=== PATIENT | female | born 1990 | race Caucasian/White ===

== ENCOUNTER 2016-05-21 09:29 | Emergency (ER) | payer OTHER ==
[2016-05-21 09:44] VITALS: BP 133/81; PULSE 86; RESP 18; TEMP 98.5
[2016-05-21] MEDS ORDERED: KETOROLAC 60 MG/2 ML VIAL IM STA (10:28)
--- NOTE | 2016-05-21 10:32 | ED ---
General Adult HPI - General Chief complaint: Fall Stated complaint: Back pain/fell downstairs Time Seen by Provider: 05/21/16 10:00 Source: patient, RN notes reviewed Mode of arrival: ambulatory Limitations: no limitations - History of Present Illness Initial comments: This is a 25-year-old female presents to the emergency department stating that she slipped on the last couple steps at home. Patient states since then she has had some pain between her scapulas she states is more on the right than the left. Patient denies any direct trauma to that area. Patient denies any numbness weakness. Patient denies any chest pain or difficulty breathing. Patient denies any scapular pain. Patient denies any upper extremity pain. Patient denies any head trauma or neck pain. Patient denies any lower extremity pain or hip pain. Patient denies any abdominal pain. - Related Data Home Medications Medication Instructions Recorded Confirmed Acetaminophen Tab [Tylenol Tab] 1,000 mg PO Q6HR PRN 05/21/16 05/21/16 Mirena 1 implant VAGINAL [id number] 05/21/16 05/21/16 diphenhydrAMINE HCL [Benadryl] 25 mg PO DAILY PRN 05/21/16 05/21/16 Previous Rx's Medication Instructions Recorded Cyclobenzaprine [Flexeril] 10 mg PO TID #10 tab 05/21/16 Allergies Allergy/AdvReac Type Severity Reaction Status Date / Time tramadol Allergy Anaphylaxis Verified 05/21/16 10:54 Review of Systems ROS Statement: Those systems with pertinent positive or pertinent negative responses have been documented in the HPI. ROS Other: All systems not noted in ROS Statement are negative. Past Medical History Past Medical History: Asthma, GERD/Reflux Additional Past Medical History / Comment(s): UTI,migraines,bronchitis History of Any Multi-Drug Resistant Organisms: None Reported Past Surgical History: Cholecystectomy Additional Past Surgical History / Comment(s): migraines Past Anesthesia/Blood Transfusion Reactions: No Reported Reaction Past Psychological History: No Psychological Hx Reported Additional Psychological History / Comment(s): Patient states being monitored by PCP for depression but states no confirmed diagnosis or treatment. Smoking Status: Former smoker Past Alcohol Use History: None Reported Past Drug Use History: None Reported - Past Family History Brother(s) Additional Family Medical History / Comment(s): Cerebral Palsy General Exam - General Exam Comments Initial Comments: GENERAL: Patient is well-developed and well-nourished. Patient is nontoxic and well- hydrated and is in mild distress. ENT: Neck is soft and supple. No significant lymphadenopathy is noted. Oropharynx is clear. Moist mucous membranes. Neck has full range of motion without eliciting any pain. EYES: The sclera were anicteric and conjunctiva were pink and moist. Extraocular movements were intact and pupils were equal round and reactive to light. Eyelids were unremarkable. PULMONARY: Unlabored respirations. Good breath sounds bilaterally. No audible rales rhonchi or wheezing was noted. CARDIOVASCULAR: There is a regular rate and rhythm without any murmurs gallops or rubs. ABDOMEN: Soft and nontender with normal bowel sounds. No palpable organomegaly was noted. There is no palpable pulsatile mass. SKIN: Skin is clear with no lesions or rashes and otherwise unremarkable. NEUROLOGIC: Patient is alert and oriented x3. Cranial nerves II through XII are grossly intact. Motor and sensory are also intact. Normal speech, volume and content. Symmetrical smile. Patient has mild tenderness just medial to the right scapula. No spinous tenderness is noted MUSCULOSKELETAL: Normal extremities with adequate strength and full range of motion. LYMPHATICS: No significant lymphadenopathy is noted PSYCHIATRIC: Normal psychiatric evaluation. Limitations: no limitations Course Vital Signs 05/21/16 09:41 Temperature 98.5 F Pulse Rate 86 Respiratory 18 Rate Blood Pressure 133/81 O2 Sat by Pulse 97 Oximetry Disposition Clinical Impression: Thoracic myofascial strain Disposition: HOME SELF-CARE Condition: Good Instructions: Thoracic Back Strain (ED) Prescriptions: Cyclobenzaprine [Flexeril] 10 mg PO TID #10 tab Time of Disposition: 11:28
--- NOTE | 2016-05-21 11:03 | XR ---
EXAMINATION TYPE: XR thoracic spine 2V DATE OF EXAM: 05/21/2016 10:56 AM CLINICAL HISTORY: pain TECHNIQUE: Frontal, lateral, and swimmer's view of thoracic spine are obtained. COMPARISON: None. FINDINGS: Thoracic spine show satisfactory alignment without evidence of acute fracture or dislocatio n. Vertebral body heights are preserved. Disc spaces are well preserved. Visualized ribs are unrem arkable. IMPRESSION: No acute fracture or dislocation is seen in the thoracic spine. ICD 10 NO FRACTURE, INIT IAL EVALUATION
== END 2016-05-21 11:38 | disposition home or self-care (01) ==
LOC: EC 09:29
DX: S29.012A Strain of muscle and tendon of back wall of thorax, initial encounter (principal); Z88.5 Allergy status to narcotic agent; Z87.891 Personal history of nicotine dependence; W10.9XXA Fall (on) (from) unspecified stairs and steps, initial encounter; Y92.019 Unspecified place in single-family (private) house as the place of occurrence of the external cause
CPT/HCPCS: 72070; 99284; 96372; J1885

== ENCOUNTER 2017-07-12 17:11 | Emergency (ER) | payer OTHER ==
[2017-07-12 17:17] VITALS: TEMP 99.3
--- NOTE | 2017-07-12 17:32 | ED ---
Headache HPI - General Chief Complaint: Headache Stated Complaint: Headache x8 days Time Seen by Provider: 07/12/17 17:19 Mode of arrival: ambulatory Limitations: no limitations - History of Present Illness Initial Comments: 27 yoF presenting with MIRANDA for one week and N/V for 3 days. Patient states she was diagnosed with migraines at 14 years old by a physician. The MIRANDA she has now is similar to previous migraines, however she hasnt had nausea and vomiting with the MIRANDA in the past few years. She admits to mild blurred vision, which is typical for her MIRANDA. She denies focal weakness, numbness, light headedness, or dizziness. She states the MIRANDA is frontal, exacerbated by light, not alleviated by anything. She has tried Excedrin migraine, Fiorcet, and Tylenol. Last medication was Tylenol this am. She denies F/C, CP, shortness of breath, or recent illness. LMP was 12/2015 because patient has an IUD. - Related Data Home Medications Medication Instructions Recorded Confirmed Acetaminophen Tab [Tylenol Tab] 1,000 mg PO Q6HR PRN 05/21/16 05/21/16 Mirena 1 implant VAGINAL [id number] 05/21/16 05/21/16 diphenhydrAMINE HCL [Benadryl] 25 mg PO DAILY PRN 05/21/16 05/21/16 Previous Rx's Medication Instructions Recorded Cyclobenzaprine [Flexeril] 10 mg PO TID #10 tab 05/21/16 Metoclopramide HCl [Reglan] 10 mg PO Q8HR PRN #20 tablet 07/12/17 diphenhydrAMINE [Benadryl] 50 mg PO QID PRN #20 capsule 07/12/17 Allergies Allergy/AdvReac Type Severity Reaction Status Date / Time tramadol Allergy Anaphylaxis Verified 07/12/17 17:17 Review of Systems ROS Statement: Those systems with pertinent positive or pertinent negative responses have been documented in the HPI. Review of Systems Constitutional: Denies fever, chills Eyes: Positive change in vision, Denies pain Ears, nose, mouth, throat: Positive headaches, Denies sore throat Cardiovascular: Denies chest pain. Denies palpitations Respiratory: Denies shortness of breath, Denies cough Gastrointestinal: Denies abdominal pain. Positive nausea, vomiting. Negative diarrhea. Genitourinary: Denies hematuria, Denies infections Musculoskeletal: Denies pain, Denies swelling Integumentary: Denies rash Neurological: Denies headache, focal weakness, focal numbness Psychiatric: Denies anxiety, Denies depression Hematologic/Lymphatic: Denies easy bleeding or bruising ROS Other: All systems not noted in ROS Statement are negative. Past Medical History Past Medical History: Asthma, GERD/Reflux Additional Past Medical History / Comment(s): UTI,migraines,bronchitis History of Any Multi-Drug Resistant Organisms: None Reported Past Surgical History: Cholecystectomy Additional Past Surgical History / Comment(s): migraines Past Anesthesia/Blood Transfusion Reactions: No Reported Reaction Past Psychological History: Anxiety, Depression Smoking Status: Former smoker Past Alcohol Use History: Occasional Past Drug Use History: None Reported - Past Family History Brother(s) Additional Family Medical History / Comment(s): Cerebral Palsy General Exam - General Exam Comments Initial Comments: General: Awake, alert, No acute Distress HENT: Normocephalic. Atraumatic Eyes: PERRL. EOMI. No scleral icterus. No injected conjunctiva Ears: TM intact without erythema or effusion. Neck: Full ROM. No tenderness. No meningeal signs. Chest/Lungs: Clear to auscultation bilaterally. No wheezing, rhonchi, or rales Cardiac: Regular rate, rhythm. No murmurs or rubs Abdomen/GI: [Soft, nontender, nondistended. No rebound, guarding, or rigidity. Musculoskeletal: Full ROM Skin: Warm, dry, intact Neurologic: A/Ox3, no weakness, no sensory deficit, no abdnormal gait, no coordination deficit. Intact finger to nose, rapid alternating motion, and heel to alvarado. Limitations: no limitations Course Vital Signs 07/12/17 17:14 Temperature 99.3 F Pulse Rate 104 H Respiratory 18 Rate Blood Pressure 139/85 O2 Sat by Pulse 99 Oximetry Medical Decision Making - Medical Decision Making 27-year-old female presenting with headache. Initial exam patient's awake, alert, no acute distress. VSS. Patient is nontoxic appearing. At this time there are no signs of any life-threatening infection such as meningitis. The patient's migraine is similar to headaches in the past and she is neurologically intact on exam. At this time will defer any CT imaging as serious etiologies are of low likelihood. 1815 Patient's headache decreased from a 7 to a 4. States her nausea is completely resolved. She states at this time she is stable for outpatient follow-up with her primary care physician on Friday. No further emergent workup indicated. At this time the patient is stable for outpatient follow-up with her primary care physician. She was given return to ER instructions. There are no signs of life threatening infection, stroke, other serious etiologies. - Lab Data Lab Results 07/12/17 Range/Units 17:30 Urine HCG, Qual Not Detected (Not Detectd) Disposition Clinical Impression: Headache Disposition: HOME SELF-CARE Condition: Good Instructions: Acute Headache (ED), Migraine Headache (ED) Prescriptions: diphenhydrAMINE [Benadryl] 50 mg PO QID PRN #20 capsule PRN Reason: Nausea Metoclopramide HCl [Reglan] 10 mg PO Q8HR PRN #20 tablet PRN Reason: Headache Referrals: Param Ferrari MD [Primary Care Provider] - 1-2 days
[2017-07-12] MEDS ORDERED: METOCLOPRAMIDE 5 MG/ML 2 ML VIAL IVP STA (17:52)
[2017-07-12] MEDS ORDERED: KETOROLAC 30 MG/ML 1 ML VIAL IVP STA (17:52)
[2017-07-12] MEDS ORDERED: diphenhydrAMINE 50 MG/ML 1 ML VIAL IVP STA (17:52)
[2017-07-12 18:26] VITALS: BP 123/71; PULSE 82; RESP 16
== END 2017-07-12 18:25 | disposition home or self-care (01) ==
LOC: EC 17:11
DX: R51 Headache (principal); R11.2 Nausea with vomiting, unspecified; H53.8 Other visual disturbances; Z87.891 Personal history of nicotine dependence; Z88.5 Allergy status to narcotic agent; Z97.5 Presence of (intrauterine) contraceptive device
CPT/HCPCS: 81025; 99283; 96374; 96375 ×2; J1200; J2765; J1885

== ENCOUNTER 2017-12-25 17:54 | Emergency (ER) | payer OTHER ==
[2017-12-25 17:59] VITALS: BP 125/82; PULSE 100; RESP 20; TEMP 98.1
[2017-12-25] MEDS ORDERED: KETOROLAC 30 MG/ML 1 ML VIAL IM STA (18:27)
--- NOTE | 2017-12-25 18:31 | ED ---
Head Injury HPI - General Chief complaint: Head Injury Stated complaint: head injury Time Seen by Provider: 12/25/17 18:09 Source: patient Mode of arrival: wheelchair Limitations: no limitations - History of Present Illness Initial comments: 27-year-old female with past medical history asthma presenting today for chief complaint of scalp laceration. Patient states that she was getting into her car try to change it car seat when she hit her head on a part sticking out the door. She noticed she was bleeding from the scalp and her mother evaluated stating that it was deep and she needed kelly. Patient denies loss of consciousness. Patient does admit to a dull headache 4 out of 10 however she states she does get chronic migraines and takes Topamax, denies this being worst headache of her life. Patient denies any diplopia, muscle weakness or any other neurological symptoms at this time. Patient states her tetanus is up- to-date. Patient denies any recent fever, chills, shortness of breath, chest pain, back pain, abdominal pain, nausea or vomiting, numbness or tingling, dysuria or hematuria, constipation or diarrhea, or visual changes, or any other complaints. - Related Data Home Medications Medication Instructions Recorded Confirmed Acetaminophen Tab [Tylenol Tab] 1,000 mg PO Q6HR PRN 05/21/16 05/21/16 Mirena 1 implant VAGINAL [id number] 05/21/16 05/21/16 diphenhydrAMINE HCL [Benadryl] 25 mg PO DAILY PRN 05/21/16 05/21/16 Previous Rx's Medication Instructions Recorded Cyclobenzaprine [Flexeril] 10 mg PO TID #10 tab 05/21/16 Metoclopramide HCl [Reglan] 10 mg PO Q8HR PRN #20 tablet 07/12/17 diphenhydrAMINE [Benadryl] 50 mg PO QID PRN #20 capsule 07/12/17 Allergies/Adverse reactions: Allergies Allergy/AdvReac Type Severity Reaction Status Date / Time tramadol Allergy Anaphylaxis Verified 12/25/17 20:38 Review of Systems ROS Statement: Those systems with pertinent positive or pertinent negative responses have been documented in the HPI. ROS Other: All systems not noted in ROS Statement are negative. Constitutional: Denies: fever, chills Eyes: Denies: vision change Respiratory: Denies: cough, dyspnea, wheezes, hemoptysis, stridor Endocrine: Denies: fatigue Gastrointestinal: Denies: abdominal pain, nausea, vomiting, diarrhea, constipation Genitourinary: Denies: urgency, dysuria Musculoskeletal: Denies: back pain Skin: Reports: as per HPI (1cm superficial laceration of the right parietal aspect of skull) Neurological: Reports: headache (4/10 dull ache no radiation). Denies: weakness , numbness, paresthesias, confusion, abnormal gait, vertigo Past Medical History Past Medical History: Asthma, GERD/Reflux Additional Past Medical History / Comment(s): UTI,migraines,bronchitis History of Any Multi-Drug Resistant Organisms: None Reported Past Surgical History: Cholecystectomy Additional Past Surgical History / Comment(s): migraines Past Anesthesia/Blood Transfusion Reactions: No Reported Reaction Past Psychological History: Anxiety, Depression Smoking Status: Former smoker Past Alcohol Use History: Occasional Past Drug Use History: None Reported - Past Family History Brother(s) Additional Family Medical History / Comment(s): Cerebral Palsy General Exam - General Exam Comments Initial Comments: General: The patient is awake and alert, in no distress, and does not appear acutely ill. Eye: Pupils are equal, round and reactive to light, extra-ocular movements are intact. No nystagmus. There is normal conjunctiva bilaterally. No signs of icterus. Ears, nose, mouth and throat: There are moist mucous membranes and no oral lesions. Cardiovascular: There is a regular rate and rhythm. No murmur, rub or gallop is appreciated. Respiratory: Lungs are clear to auscultation, respirations are non-labored, breath sounds are equal. No wheezes, stridor, rales, or rhonchi. Musculoskeletal: Normal ROM, no tenderness. Strength 5/5 UE and LE. Sensation intact. Radial pulses equal bilaterally 2+. Neurological: A&O x 3. CN II-XII intact, There are no obvious motor or sensory deficits. Coordination appears grossly intact. Speech is normal. Skin: Skin is warm and dry and no rashes or lesions are noted. 1cm superficial laceration to the right parietal aspect of skull. No active bleeding. No skull crepitus to palpation. (-) Racoon or whitley sign. Psychiatric: Cooperative, appropriate mood & affect, normal judgment. Limitations: no limitations Course Vital Signs 12/25/17 17:57 Temperature 98.1 F Pulse Rate 100 Respiratory 20 Rate Blood Pressure 125/82 O2 Sat by Pulse 98 Oximetry Medical Decision Making - Medical Decision Making Pt given 30mg for headache- she mentioned that she has had chronic migraines and this is not the worst headache of her life. I have low suspicion for intracranial process at this time given the mechanism of injury and pt PE findings. Pt shows no signs or symptoms of focal neurological deficits. There is no crepitus to palpation of the skull concerning for skull fracture. No whitley or raccoon sign. Laceration irrigated extensively and explored appeared superficial no FB, or exposure of underlying structures. Wound edges approximated using 2 kelly. Given size of laceration lidocaine use was discussed and pt refused. Pt tolerated procedure well. Case discussed with Dr Glaser at this time I feel pt is stable for d/c with f/u for staple removal. Pt is to return for change or worsening symptoms, including incontrolled vomiting, worsening headache, visual changes. Disposition Clinical Impression: Scalp laceration Disposition: HOME SELF-CARE Condition: Good Instructions: Staple Care (ED) Additional Instructions: Please use over the counter pain medication as discussed. Please follow-up for suture removal in 5-7 days. Please return to emergency room if the symptoms increase or worsen or for any other concerns. Is patient prescribed a controlled substance at d/c from ED?: No Referrals: Param Ferrari MD [Primary Care Provider] - 1-2 days Time of Disposition: 18:42
== END 2017-12-25 18:46 | disposition home or self-care (01) ==
LOC: EC 17:54
DX: S01.01XA Laceration without foreign body of scalp, initial encounter (principal); G43.909 Migraine, unspecified, not intractable, without status migrainosus; Z79.3 Long term (current) use of hormonal contraceptives; Z88.6 Allergy status to analgesic agent; Z87.891 Personal history of nicotine dependence; Z53.29 Procedure and treatment not carried out because of patient's decision for other reasons; W22.8XXA Striking against or struck by other objects, initial encounter; Y92.009 Unspecified place in unspecified non-institutional (private) residence as the place of occurrence of the external cause
CPT/HCPCS: 99283 ×3; 12001 ×2; 96372 ×2; 96374; 96375; J1200; J2765; J1885

== ENCOUNTER 2017-12-25 20:28 | Emergency (ER) | payer OTHER ==
[2017-12-25] MEDS ORDERED: METOCLOPRAMIDE 5 MG/ML 2 ML VIAL IVP STA (21:28)
[2017-12-25] MEDS ORDERED: diphenhydrAMINE 50 MG/ML 1 ML VIAL IVP STA (21:28)
--- NOTE | 2017-12-25 21:39 | ED ---
Headache HPI - General Chief Complaint: Headache Stated Complaint: headache/vomiting-revisit Time Seen by Provider: 12/25/17 21:29 Mode of arrival: ambulatory Limitations: no limitations - History of Present Illness Initial Comments: 7-year-old female with a history of migraine headaches who presents to the ED today for reevaluation of a headache. Patient was seen earlier in the day after a minor head injury. Patient reports that she was putting her children in the back seat of a van, when she attempted to get out of the van she struck the right side of her head on the latch resulting in a small laceration approximately 1 cm in length to the right temporoparietal scalp. Patient did not lose consciousness. Patient was evaluated in our ER, 2 kelly were placed and the patient was discharged home with closed head injury precautions. Patient reports that this afternoon she had a mild headache, she had one episode of nonbloody nonbilious emesis, she reports that she read on her paperwork that if she had any headache or emesis she should return to the emergency department for reevaluation. Patient does report she has chronic migraines, she is on Topamax. She has not attempted take any medications for her headache. Patient isn't experiencing any blurred vision. Any confusion. Any persistent vomiting. She is awake alert oriented totally appropriate. - Related Data Home Medications Medication Instructions Recorded Confirmed Acetaminophen Tab [Tylenol Tab] 1,000 mg PO Q6HR PRN 05/21/16 12/25/17 diphenhydrAMINE HCL [Benadryl] 25 mg PO DAILY PRN 05/21/16 12/25/17 Naproxen Sodium [Aleve] 220 mg PO DAILY PRN 12/25/17 12/25/17 Topiramate [Topamax] 100 mg PO DAILY 12/25/17 12/25/17 Allergies Allergy/AdvReac Type Severity Reaction Status Date / Time tramadol Allergy Anaphylaxis Verified 12/25/17 20:50 Review of Systems ROS Statement: Those systems with pertinent positive or pertinent negative responses have been documented in the HPI. ROS Other: All systems not noted in ROS Statement are negative. Past Medical History Past Medical History: Asthma, GERD/Reflux Additional Past Medical History / Comment(s): UTI,migraines,bronchitis History of Any Multi-Drug Resistant Organisms: None Reported Past Surgical History: Cholecystectomy Additional Past Surgical History / Comment(s): migraines Past Anesthesia/Blood Transfusion Reactions: No Reported Reaction Past Psychological History: Anxiety, Depression Smoking Status: Former smoker Past Alcohol Use History: Occasional Past Drug Use History: None Reported - Past Family History Brother(s) Additional Family Medical History / Comment(s): Cerebral Palsy General Exam - General Exam Comments Initial Comments: GENERAL: Patient is well-developed and well-nourished. Patient is nontoxic and well- hydrated and is in no distress. Patient sitting up in bed talking to her sister in no acute distress HENT: Normocephalic, 1 cm laceration in the right sided frontotemporal scalp with [address] No active bleeding. TMs normal bilaterally no hemotympanum No whitley signs, no raccoon eyes Neck is soft and supple. No significant lymphadenopathy is noted. Oropharynx is clear. Moist mucous membranes. Neck has full range of motion without eliciting any pain. EYES: The sclera were anicteric and conjunctiva were pink and moist. Extraocular movements were intact and pupils were equal round and reactive to light. Eyelids were unremarkable. PULMONARY: Unlabored respirations. Good breath sounds bilaterally. No audible rales rhonchi or wheezing was noted. CARDIOVASCULAR: There is a regular rate and rhythm without any murmurs gallops or rubs. ABDOMEN: Soft and nontender with normal bowel sounds. SKIN: Skin is clear with no lesions or rashes and otherwise unremarkable. NEUROLOGIC: Patient is alert and oriented x3. Cranial nerves II through XII are grossly intact. Motor and sensory are also intact. Normal speech, volume and content. Symmetrical smile. MUSCULOSKELETAL: Normal extremities with adequate strength and full range of motion. No lower extremity swelling or edema. No calf tenderness. LYMPHATICS: No significant lymphadenopathy is noted PSYCHIATRIC: Normal psychiatric evaluation. Limitations: no limitations Limitations: no limitations Course Vital Signs 12/25/17 12/25/17 20:37 22:02 Temperature 98.2 F 97.6 F Pulse Rate 83 64 Respiratory 16 18 Rate Blood Pressure 129/81 118/66 O2 Sat by Pulse 99 100 Oximetry Medical Decision Making - Medical Decision Making The patient was seen and evaluated history was obtained from the patient and review of medical record Patient struck her head on the latch of the door earlier in the day, received 2 kelly. Now has a mild headache and did have one episode of vomiting Patient is on no anticoagulant or antiplatelet medications. She is awake alert and oriented and in no acute distress. Based on the mechanism of injury the location of the small laceration or had a have no suspicion for intracranial hemorrhage. At this time I will treat the patient is a migraine and reevaluate Plan was discussed with the patient who is agreeable Patient reports improvement in her headache after medications. Continues to sit upright in the bed conversing with her sister. Playing on her cell phone. In no acute distress. At this time if the patient is stable for discharge home. Again return parameters were discussed patient was discharged home in stable condition. Disposition Clinical Impression: Headache Disposition: HOME SELF-CARE Condition: Good Instructions: Acute Headache (ED) Is patient prescribed a controlled substance at d/c from ED?: No Referrals: Param Ferrari MD [Primary Care Provider] - 1-2 days
[2017-12-25 22:02] VITALS: BP 118/66; PULSE 64; RESP 18; TEMP 97.6
== END 2017-12-25 22:28 | disposition home or self-care (01) ==
LOC: EC 20:28
DX: R51 Headache (principal); R11.10 Vomiting, unspecified; S01.01XD Laceration without foreign body of scalp, subsequent encounter; Z86.69 Personal history of other diseases of the nervous system and sense organs; Z87.891 Personal history of nicotine dependence; Z90.49 Acquired absence of other specified parts of digestive tract; Z79.899 Other long term (current) drug therapy; Z88.5 Allergy status to narcotic agent; W22.8XXD Striking against or struck by other objects, subsequent encounter
CPT/HCPCS: 99283; 96374; 96375; J1200; J2765

== ENCOUNTER → 2018-05-19 | Outpatient (CLI) | payer OTHER ==
--- NOTE | 2018-05-21 01:48 | US ---
EXAMINATION TYPE: US OB <= 14 wk twins DATE OF EXAM: 05/19/2018 COMPARISON: NONE CLINICAL HISTORY: 27-year-old female Z36 confirm dates. Confirm dates EXAM PERFORMED: Transabdominal (TA) FINDINGS: EXAM MEASUREMENTS: GESTATIONAL AGE / DATING Physician Established: (10 weeks/1 days) EDC: 12/14/2018 Dates by LMP: (10 weeks/1 days) EDC: 12/14/2018 Dates by First Scan: This is 1st scan Dates by Current Scan for Baby A: (10 weeks/5 days) EDC: 12/10/2018 Dates by Current Scan for Baby B: (11 weeks/0 days) EDC: 12/08/2018 MATERNAL ANATOMY Uterus: 12.2 x 7.7 x 9.3cm, anteverted Right Ovary: 3.3 x 1.9 x 2.6cm Left Ovary: 2.9 x 1.4 x 2.2cm Post CDS / Adnexa: wnl Presence of free fluid: no Presence of corpus luteal cyst: not seen Presence of subchorionic bleed: no Presence of two separate gestational sacs: yes GESTATION / SURVEY Twin peak sign is demonstrated with 2 yolk sacs. TWIN A (more inferior) CRL: 3.7cm (10wks/5days) Yolk Sac (normal less than 6mm): 4.6mm Heart Rate: 160 bpm Rhythm: Normal IUP: Viable IUP Nuchal Translucency 10-14wks (normal less than 3mm): 1.3mm TWIN B (more superior) CRL: 4.0cm (11wks/0days) Yolk Sac (normal less than 6mm): 4.8mm Heart Rate: 153 bpm Rhythm: Normal IUP: Viable IUP Nuchal Translucency 10-14wks (normal less than 3mm): 1.5mm Date of LMP: 03/09/2018 Safety Lead notes: Viable twin IUP with baby A measuring 10 weeks 5 days with a heart rate of 160bpm and an estimated delivery date of 12/10/2018 and with baby B measuring 11 weeks 0 days with a heart r ate of 153bpm and an estimated delivery date of 12/08/2018. IMPRESSION: 1. Live dichorionic, diamnionic twin pregnancies evidenced by a thick dividing septum and two yolk sa cs. 2. Estimated gestational age of 10 weeks 1 day by LMP. Current ultrasound biometry is slightly larger (twin A at 10 weeks 5 days and twin B at 11 weeks 0 days). 3. Complete survey recommended at 18-20 weeks.
== END ==
LOC: RADUSWWP 16:15
PROVIDERS: ATTEND Obstetrics & Gynecology
DX: O30.041 Twin pregnancy, dichorionic/diamniotic, first trimester (principal); Z3A.11 11 weeks gestation of pregnancy
CPT/HCPCS: 76801; 76802; 76813; 76814

== ENCOUNTER 2018-05-29 19:31 | Emergency (ER) | payer OTHER ==
[2018-05-29 19:47] VITALS: RESP 16
--- NOTE | 2018-05-29 21:07 | ED ---
General Adult HPI - General Chief complaint: Fever Stated complaint: Fever/Rash/13Weeks Time Seen by Provider: 05/29/18 19:54 Source: patient, RN notes reviewed, old records reviewed Mode of arrival: ambulatory Limitations: no limitations - History of Present Illness Initial comments: 27-year-old female patient who is approximately 10 weeks presents to ED with rash on her left breast. Patient fourth that this has been there for approximately 2 days. Patient was seen yesterday is painful, however today is not. Denies any pruritus or discharge. Patient also reports that she has been having some low-grade fevers waxing and waning over the last 2 days. Patient also states that she has a mild dry cough. Patient denies other complaints. Patient denies any abdominal pain, vaginal bleeding, dysuria. Systemic: Pt denies fatigue, myalgia. Pt denies weakness, night sweats, weight loss. Neuro: Pt denies headache, visual disturbances, syncope or pre-syncope. HEENT: Pt denies ocular discharge or irritation, otalgia, rhinorrhea, pharyngitis or notable lymphadenopathy. Cardiopulmonary: Pt denies chest pain, SOB, heart palpitations, dyspnea on exertion. Abdominal/GI: Pt denies abdominal pain, n/v/d. : Pt denies dysuria, burning w/ urination, frequency/urgency. Denies new onset urinary or bowel incontinence. MSK: Pt denies myalgia, loss of strength or function in extremities. Neuro: Pt denies new onset weakness, paresthesias. - Related Data Home Medications Medication Instructions Recorded Confirmed Acetaminophen Tab [Tylenol Tab] 1,000 mg PO Q6HR PRN 05/21/16 05/29/18 diphenhydrAMINE HCL [Benadryl] 25 mg PO DAILY PRN 05/21/16 05/29/18 [id number] Acid 1 cap PO DAILY 05/29/18 05/29/18 [-U Capsule (formulary)] Previous Rx's Medication Instructions Recorded Clotrimazole [Clotrimazole 1% Top 1 applic TOPICAL Q12HR 7 Days #1 05/29/18 Soln] tube Allergies Allergy/AdvReac Type Severity Reaction Status Date / Time tramadol Allergy Anaphylaxis Verified 05/29/18 20:32 Review of Systems ROS Statement: Those systems with pertinent positive or pertinent negative responses have been documented in the HPI. ROS Other: All systems not noted in ROS Statement are negative. Past Medical History Past Medical History: Asthma, GERD/Reflux Additional Past Medical History / Comment(s): UTI,migraines,bronchitis History of Any Multi-Drug Resistant Organisms: None Reported Past Surgical History: Cholecystectomy Additional Past Surgical History / Comment(s): migraines Past Anesthesia/Blood Transfusion Reactions: No Reported Reaction Past Psychological History: Anxiety, Depression Smoking Status: Former smoker Past Alcohol Use History: Occasional Past Drug Use History: None Reported - Past Family History Brother(s) Additional Family Medical History / Comment(s): Cerebral Palsy General Exam - General Exam Comments Initial Comments: Constitutional: NAD, AOX3, Pt has pleasant affect. HEENT: NC/AT, trachea midline, neck supple, no lymphadenopathy. Posterior pharynx non erythematous, without exudates. External ears appear normal, without discharge. Mucous membranes moist. Eyes PERRLA, EOM intact. There is no scleral icterus. No pallor noted. Cardiopulmonary: RRR, no murmurs, rubs or gallops, no JVD noted. Lungs CTAB in anterior and posterior herzog. No peripheral edema. Abdominal exam: Abdomen soft and non-distended. Abdomen non-tender to palpation in all 4 quadrants. Bowel sounds active in LLQ. No hepatosplenomegaly. No ecchymosis Neuro: CN II-XII grossly intact. No nuchal rigidity. MSK: No posterior calf tenderness bilaterally, homans sign negative bilaterally. Posterior tibialis and radial pulse +2 bilaterally. Sensation intact in upper and lower extremities. Full active ROM in upper and lower extremities, 5/5 stregnth. Derm: Mildly erythematous rash noted beneath left breast to midline, no discharge, nonraised. Limitations: no limitations Course Vital Signs 05/29/18 05/29/18 19:44 21:21 Temperature 99 F 98.1 F Pulse Rate 77 73 Respiratory 16 16 Rate Blood Pressure 126/70 122/72 O2 Sat by Pulse 100 100 Oximetry Medical Decision Making - Medical Decision Making 27-year-old female patient who is approximately 10 weeks presents to ED with rash on her left breast. Patient fourth that this has been there for approximately 2 days. Patient was seen yesterday is painful, however today is not. Denies any pruritus or discharge. Patient also reports that she has been having some low-grade fevers waxing and waning over the last 2 days. Patient also states that she has a mild dry cough. Patient denies other complaints. Pt VSS, afebrile. PHysical exam displayed: Mildly erythematous rash noted beneath left breast to midline, no discharge, nonraised. Chaperogned by Kaye WARD. Patient to be treated for Nai with clotrimazole. Patient to follow up with [facility] tomorrow for continued evaluation. Shared decision-making patient will continue to monitor cough, will be reevaluated by [facility]. Patient will also follow up with primary care right 1-2 days. Case discussed and patient seen by Dr. Woodard. - Lab Data Lab Results 05/29/18 Range/Units 20:05 Influenza Type A RNA Not Detected (Not Detectd) Influenza Type B (PCR) Not Detected (Not Detectd) Disposition Clinical Impression: Rash Disposition: HOME SELF-CARE Condition: Stable Instructions (If sedation given, give patient instructions): Skin Yeast Infection (ED) Additional Instructions: Patient to adhere to previously discussed treatment plan and will take medication(s) as directed. Patient to follow up with PCP in 1-2 days. Patient to return to ED if symptoms do not improve. Follow-up with [facility] tomorrow. Please return to ED if new s/sx develop or if condition worsens in anyway. Prescriptions: Clotrimazole [Clotrimazole 1% Top Soln] 1 applic TOPICAL Q12HR 7 Days #1 tube Is patient prescribed a controlled substance at d/c from ED?: No Referrals: Param Ferrari MD [Primary Care Provider] - 1-2 days Time of Disposition: 21:07
[2018-05-29 21:22] VITALS: BP 122/72; PULSE 73; TEMP 98.1
== END 2018-05-29 21:23 | disposition home or self-care (01) ==
LOC: EC 19:31
DX: O99.89 Other specified diseases and conditions complicating pregnancy, childbirth and the puerperium (principal); R21 Rash and other nonspecific skin eruption; R50.9 Fever, unspecified; R05 Cough; Z87.09 Personal history of other diseases of the respiratory system; Z87.891 Personal history of nicotine dependence; Z88.5 Allergy status to narcotic agent; Z3A.10 10 weeks gestation of pregnancy
CPT/HCPCS: 87502; 99283

== ENCOUNTER 2018-06-17 12:07 | Emergency (ER) | payer OTHER ==
[2018-06-17 12:20] VITALS: TEMP 98.4
[2018-06-17] MEDS ORDERED: SODIUM CHLORIDE 0.9% 1,000 ML IV ONE (12:49)
[2018-06-17] MEDS ORDERED: METOCLOPRAMIDE 5 MG/ML 2 ML VIAL IVP STA (12:50)
[2018-06-17] MEDS ORDERED: PYRIDOXINE 100 MG/ML 1 ML VIAL IVP STA (12:52)
[2018-06-17 13:23] LABS: ALT 30 U/L (9-52); AST 20 U/L (14-36); Albumin 3.8 g/dL (3.5-5.0); Alkaline Phosphatase 38 U/L (38-126); Anion Gap 6 mmol/L; Blood Urea Nitrogen 9 mg/dL (7-17); Calcium 8.4 mg/dL (8.4-10.2); Carbon Dioxide 25 mmol/L (22-30); Chloride 104 mmol/L (98-107); Glucose 80 mg/dL (74-99); Potassium 4.1 mmol/L (3.5-5.1); Sodium 135 mmol/L (137-145); Total Bilirubin 0.7 mg/dL (0.2-1.3); Total Protein 6.6 g/dL (6.3-8.2)
[2018-06-17 13:24] LABS: Appearance,Urine Clear (Clear); Bilirubin,Urine Negative (Negative); Blood,Urine Negative (Negative); Color,Urine Yellow; Glucose,Urine (UA) Negative (Negative); Ketones,Urine Negative (Negative); Leukocyte Esterase,Urine Negative (Negative); Mucus,Urine Few /hpf; Nitrite,Urine Negative (Negative); PH, Urine 6.5 (5.0-8.0); Protein,Urine 1+ (Negative); Specific Gravity,Urine 1.022 (1.001-1.035); Squamous Epithelial Cell,Urine <1 /hpf (0-4); WBC,Urine 1 /hpf (0-5)
[2018-06-17 13:30] LABS: Basophils % (A) 0 %; Eosinophils # (A) 0.1 k/uL (0-0.7); Eosinophils % (A) 1 %; HCT 42.2 % (34.0-46.0); Lymphocytes # (A) 0.8 k/uL (1.0-4.8); Lymphocytes % (A) 12 %; MCH 30.2 pg (25.0-35.0); MCHC 33.1 g/dL (31.0-37.0); MCV 91.1 fL (80.0-100.0); Mean Platelet Volume 7.1; Monocytes # (A) 0.3 k/uL (0-1.0); Monocytes % (A) 4 %; Neutrophils # (A) 5.4 k/uL (1.3-7.7); Neutrophils % (A) 82 %; Platelet Count 241 k/uL (150-450); RBC 4.64 m/uL (3.80-5.40); RDW 12.7 % (11.5-15.5); WBC 6.6 k/uL (3.8-10.6)
--- NOTE | 2018-06-17 13:37 | ED ---
Nausea/Vomiting/Diarrhea HPI - General Chief complaint: Nausea/Vomiting/Diarrhea Stated complaint: Vomiting-14 wks Time Seen by Provider: 06/17/18 12:49 Source: patient Mode of arrival: ambulatory Limitations: no limitations - History of Present Illness Initial comments: 28-year-old female A0 with no past medical history presents today at 14wks gestation for chief complaint of nausea, vomiting and diarrhea. Patient states she has had a mild cough and congestion for the past week, others in her household have tested positive for influenza A, patient states she is vaccinated. Patient states that today at 4 AM she began experiencing vomiting, she states it feels more like a "stomach bug" and morning sickness. Patient states she does have abdominal discomfort of the left upper quadrant, she denies lower abdominal pain. She states around 6 AM she noticed small specks of bright red blood in the vomit, denies the vomiting being all bright red blood. Patient states that she has had on-and-off puking all day, denies any episodes of emesis since arrival. Patient denies any chest pain, shorts breath or dyspnea on exertion. Patient states she has had 3 episodes of diarrhea she denies any melena or hematochezia. Patient denies any recent vaginal bleeding, vaginal discharge, cramping, fever, chest pain, back pain, abdominal pain, numbness or tingling, dysuria or hematuria, constipation, headaches or visual changes, or any other complaints. - Related Data Home Medications Medication Instructions Recorded Confirmed Acetaminophen Tab [Tylenol Tab] 1,000 mg PO Q6HR PRN 05/21/16 06/17/18 diphenhydrAMINE HCL [Benadryl] 25 mg PO DAILY PRN 05/21/16 06/17/18 [id number] Acid 1 cap PO DAILY 05/29/18 06/17/18 [-U Capsule (formulary)] Allergies Allergy/AdvReac Type Severity Reaction Status Date / Time tramadol Allergy Anaphylaxis Verified 06/17/18 13:15 Review of Systems ROS Statement: Those systems with pertinent positive or pertinent negative responses have been documented in the HPI. ROS Other: All systems not noted in ROS Statement are negative. Past Medical History Past Medical History: Asthma, GERD/Reflux Additional Past Medical History / Comment(s): UTI,migraines,bronchitis History of Any Multi-Drug Resistant Organisms: None Reported Past Surgical History: Cholecystectomy Additional Past Surgical History / Comment(s): migraines Past Anesthesia/Blood Transfusion Reactions: No Reported Reaction Past Psychological History: Anxiety, Depression Smoking Status: Former smoker Past Alcohol Use History: Occasional Past Drug Use History: None Reported - Past Family History Brother(s) Additional Family Medical History / Comment(s): Cerebral Palsy General Exam - General Exam Comments Initial Comments: General: The patient is awake and alert, in no distress, and does not appear acutely ill. Eye: Pupils are equal, round and reactive to light, extra-ocular movements are intact. No nystagmus. There is normal conjunctiva bilaterally. No signs of icterus. Ears, nose, mouth and throat: There are moist mucous membranes and no oral lesions. Neck: The neck is supple, there is no tenderness or JVD. Cardiovascular: There is a regular rate and rhythm. No murmur, rub or gallop is appreciated. Respiratory: Lungs are clear to auscultation, respirations are non-labored, breath sounds are equal. No wheezes, stridor, rales, or rhonchi. Gastrointestinal: Soft, non-distended, non-tender abdomen without masses or organomegaly noted. There is no rebound or guarding present. No CVA tenderness. Bowel sounds are unremarkable. Musculoskeletal: Normal ROM, no tenderness. Strength 5/5. Sensation intact. Pulses equal bilaterally 2+. Neurological: A&O x 3. CN II-XII intact, There are no obvious motor or sensory deficits. Coordination appears grossly intact. Speech is normal. Skin: Skin is warm and dry and no rashes or lesions are noted. Psychiatric: Cooperative, appropriate mood & affect, normal judgment. Limitations: no limitations Course Vital Signs 06/17/18 06/17/18 12:17 15:40 Temperature 98.4 F 98.4 F Pulse Rate 96 85 Respiratory 18 20 Rate Blood Pressure 118/65 108/52 O2 Sat by Pulse 99 96 Oximetry Medical Decision Making - Medical Decision Making 28-year-old female 14 weeks with twins presenting today for chief complaint of vomiting. Abdominal exam benign. Patient states that she ate gas station not shows a few hours prior to onset of symptoms, concerned about food poisoning. Laboratory studies unremarkable. Urinalysis within normal limits. Patient given IV fluids as well as medications for antibiotics. Patient states symptoms have resolved, no active vomiting in the emergency department. Patient states he is hungry. This time after discussing case with him provider Dr. Glaser medical patient stable for discharge. - Lab Data Result diagrams: 06/17/18 13:00 06/17/18 13:00 Lab Results 06/17/18 06/17/18 06/17/18 Range/Units 13:00 13:00 13:00 WBC 6.6 (3.8-10.6) k/uL RBC 4.64 (3.80-5.40) m/uL Hgb 14.0 (11.4-16.0) gm/dL Hct 42.2 (34.0-46.0) % MCV 91.1 (80.0-100.0) fL MCH 30.2 (25.0-35.0) pg MCHC 33.1 (31.0-37.0) g/dL RDW 12.7 (11.5-15.5) % Plt Count 241 (150-450) k/uL Neutrophils % 82 % Lymphocytes % 12 % Monocytes % 4 % Eosinophils % 1 % Basophils % 0 % Neutrophils # 5.4 (1.3-7.7) k/uL Lymphocytes # 0.8 L (1.0-4.8) k/uL Monocytes # 0.3 (0-1.0) k/uL Eosinophils # 0.1 (0-0.7) k/uL Basophils # 0.0 (0-0.2) k/uL Sodium 135 L (137-145) mmol/L Potassium 4.1 (3.5-5.1) mmol/L Chloride 104 (98-107) mmol/L Carbon Dioxide 25 (22-30) mmol/L Anion Gap 6 mmol/L BUN 9 (7-17) mg/dL Creatinine 0.36 L (0.52-1.04) mg/dL Est GFR (CKD-EPI)AfAm >90 (>60 ml/min/1.73 sqM) Est GFR (CKD-EPI)NonAf >90 (>60 ml/min/1.73 sqM) Glucose 80 (74-99) mg/dL Calcium 8.4 (8.4-10.2) mg/dL Total Bilirubin 0.7 (0.2-1.3) mg/dL AST 20 (14-36) U/L ALT 30 (9-52) U/L Alkaline Phosphatase 38 (38-126) U/L Total Protein 6.6 (6.3-8.2) g/dL Albumin 3.8 (3.5-5.0) g/dL Urine Color Yellow Urine Appearance Clear (Clear) Urine pH 6.5 (5.0-8.0) Ur Specific [place] 1.022 (1.001-1.035) Urine Protein 1+ H (Negative) Urine Glucose (UA) Negative (Negative) Urine Ketones Negative (Negative) Urine Blood Negative (Negative) Urine Nitrite Negative (Negative) Urine Bilirubin Negative (Negative) Urine Urobilinogen 2.0 (<2.0) mg/dL Ur Leukocyte Esterase Negative (Negative) Urine WBC 1 (0-5) /hpf Ur Squamous Epith Cells <1 (0-4) /hpf Urine Mucus Few H (None) /hpf Influenza Type A RNA (Not Detectd) Influenza Type B (PCR) (Not Detectd) 06/17/18 Range/Units 14:05 WBC (3.8-10.6) k/uL RBC (3.80-5.40) m/uL Hgb (11.4-16.0) gm/dL Hct (34.0-46.0) % MCV (80.0-100.0) fL MCH (25.0-35.0) pg MCHC (31.0-37.0) g/dL RDW (11.5-15.5) % Plt Count (150-450) k/uL Neutrophils % % Lymphocytes % % Monocytes % % Eosinophils % % Basophils % % Neutrophils # (1.3-7.7) k/uL Lymphocytes # (1.0-4.8) k/uL Monocytes # (0-1.0) k/uL Eosinophils # (0-0.7) k/uL Basophils # (0-0.2) k/uL Sodium (137-145) mmol/L Potassium (3.5-5.1) mmol/L Chloride (98-107) mmol/L Carbon Dioxide (22-30) mmol/L Anion Gap mmol/L BUN (7-17) mg/dL Creatinine (0.52-1.04) mg/dL Est GFR (CKD-EPI)AfAm (>60 ml/min/1.73 sqM) Est GFR (CKD-EPI)NonAf (>60 ml/min/1.73 sqM) Glucose (74-99) mg/dL Calcium (8.4-10.2) mg/dL Total Bilirubin (0.2-1.3) mg/dL AST (14-36) U/L ALT (9-52) U/L Alkaline Phosphatase (38-126) U/L Total Protein (6.3-8.2) g/dL Albumin (3.5-5.0) g/dL Urine Color Urine Appearance (Clear) Urine pH (5.0-8.0) Ur Specific [place] (1.001-1.035) Urine Protein (Negative) Urine Glucose (UA) (Negative) Urine Ketones (Negative) Urine Blood (Negative) Urine Nitrite (Negative) Urine Bilirubin (Negative) Urine Urobilinogen (<2.0) mg/dL Ur Leukocyte Esterase (Negative) Urine WBC (0-5) /hpf Ur Squamous Epith Cells (0-4) /hpf Urine Mucus (None) /hpf Influenza Type A RNA Not Detected (Not Detectd) Influenza Type B (PCR) Not Detected (Not Detectd) Disposition Clinical Impression: Vomiting and diarrhea Disposition: HOME SELF-CARE Condition: Good Instructions (If sedation given, give patient instructions): Acute Nausea and Vomiting (ED), Acute Diarrhea (ED) Additional Instructions: Please use medication as discussed. Please follow-up with OBGYN in next 1-2 weeks. Please return to emergency room if the symptoms increase or worsen or for any other concerns. Is patient prescribed a controlled substance at d/c from ED?: No Referrals: Param Ferrari MD [Primary Care Provider] - 1-2 days Eric Leach DO [Doctor of Osteopathic Medicine] - 1-2 days Time of Disposition: 15:15
[2018-06-17 15:44] VITALS: BP 108/52; PULSE 85; RESP 20
== END 2018-06-17 15:40 | disposition home or self-care (01) ==
LOC: EC 12:07
DX: O21.9 Vomiting of pregnancy, unspecified (principal); O99.89 Other specified diseases and conditions complicating pregnancy, childbirth and the puerperium; R19.7 Diarrhea, unspecified; Z87.891 Personal history of nicotine dependence; Z88.5 Allergy status to narcotic agent; Z90.49 Acquired absence of other specified parts of digestive tract; Z3A.14 14 weeks gestation of pregnancy
CPT/HCPCS: 36415; 80053; 81001; 85025; 87086; 87502; 96361; 96374; 96375; 99284

== ENCOUNTER 2018-10-03 02:13 | Outpatient (CLI) | payer OTHER ==
[2018-10-03 03:27] VITALS: BP 139/87; PULSE 109; RESP 15; TEMP 96.8
[2018-10-03 03:30] LABS: Appearance,Urine Clear (Clear); Bilirubin,Urine Negative (Negative); Blood,Urine Negative (Negative); Color,Urine Yellow; Glucose,Urine (UA) Negative (Negative); Ketones,Urine Negative (Negative); Leukocyte Esterase,Urine Moderate (Negative); Mucus,Urine Rare /hpf; Nitrite,Urine Negative (Negative); Protein,Urine Negative (Negative); RBC,Urine 1 /hpf (0-5); Specific Gravity,Urine 1.012 (1.001-1.035); Urobilinogen,Urine <2.0 mg/dL (<2.0); WBC,Urine 10 /hpf (0-5)
[2018-10-03] MEDS ORDERED: CEPHALEXIN 500 MG CAP PO STA (03:39)
--- NOTE | 2018-10-03 07:16 | P.MSEPDOC ---
Presenting Problems - Arrival Data Date of Arrival on Unit: 10/03/18 Time of Arrival on Unit: 02:13 Mode of Transport: Ambulatory - Complaint OB-Reason for Admission/Chief Complaint: Pain, Other Comment: Pt states that she has some increased vaginal pain and swelling along with burning with voiding. Pt denies leaking of fluid or vaginal bleeding. Medical History - Information : 3 Para: 2 Term: 2 : 0 Abortions: Spontaneous or Elective: 0 Number of Living Children: 2 - Gestational Age Gestational Age by OSCAR (wks/days): 29 Weeks and 5 Days - History Complications: Multiple Review of Systems - Review of Systems Constitutional: No problems Breast: No problems ENT: No problems Cardiovascular: No problems Respiratory: No problems Gastrointestinal: No problems Genitourinary: Urgency Musculoskeletal: No problems Neurological: No problems Skin: No problems Vital Signs - Temperature Temperature: 96.8 F Temperature Source: Temporal Artery Scan - Pulse Pulse Oximetery Pulse Rate: 109 Pulse Assessment Method: Pulse Oximetry - Respirations Respiratory Rate: 15 Oxygen Delivery Method: Room Air O2 Sat by Pulse Oximetry: 97 - Blood Pressure Right Arm Blood Pressure: 139/87 Blood Pressure Mean: 104 Blood Pressure Source: Automatic Cuff Medical Screen Scoring (Pre) - Cervical Exam Dilation: Exam Deferred Effacement: Exam Deferred Membranes: Intact - Uterine Contractions Frequency: N/A Duration: N/A Intensity: N/A - Maternal Vital Signs Maternal Temperature: N/A Maternal Blood Pressure: N/A Signs of Preeclampsia: N/A Maternal Respirations: N/A - Maternal Trauma Maternal Trauma: N/A - Assessment - Baby A Baseline FHR: 130 Heart Rate - NICHD Category: Category I (Normal) = 0 NST: Reactive Position: N/A, Non-vertex & not laboring = 3 Station: N/A - Assessment - Baby B Baseline FHR: 150 Heart Rate - NICHD Category: Category I (Normal) = 0 NST: Reactive Position: Non-vertex & not laboring = 3 Station: N/A - Total Score - Baby A Total Score - Baby A: 3 - Total Score - Baby B Total Score - Baby B: 3 - Total Score - Baby C Total Score - Baby C: 0 - Level of Risk - Baby A Level of Risk - Baby A: Low (0-5) - Level of Risk - Baby B Level of Risk - Baby B: Low (0-5) - Level of Risk - Baby C Level of Risk - Baby C: Low (0-5) Medical Screen Scoring (Post) - Cervical Exam Dilation: 0 cm = 0 Membranes: Intact - Uterine Contractions Frequency: > 5 minutes apart = 1 Duration: N/A Intensity: N/A - Maternal Vital Signs Maternal Temperature: N/A Maternal Blood Pressure: N/A Signs of Preeclampsia: N/A Maternal Respirations: N/A - Maternal Trauma Maternal Trauma: N/A - Assessment - Baby A Heart Rate: 130 Heart Rate - NICHD Category: Category I (Normal) = 0 NST: Reactive Position: Non-vertex & not laboring = 3 Station: N/A - Assessment - Baby B Baseline - FHR: 150 Heart Rate - NICHD Category: Category I (Normal) = 0 NST: Reactive Position: Non-vertex & not laboring = 3 Station: N/A - Total Score Total Score - Baby A: 4 Total Score - Baby B: 4 Total Score - Baby C: 1 - Post Treatment Level of Risk Post Treatment Level of Risk - Baby A: Low (0-5) Post Treatment Level of Risk - Baby B: Low (0-5) Post Treatment Level of Risk - Baby C: N/A Physician Notification (Post) - Physician Notified Physician Notified Date: 10/03/18 Physician Notified Time: 03:40 Physician/Practitioner Notified:: Dr Burns Spoke With: Dr Burns New Order Received: Yes - Notification Comment Comment: Orders received to obtain FFN, check cervix, give one dose of Keflex. If no concerns with cervical exam she may be discharged home. [id number] update given about exam, orders to send FNN and discharge pt home. Pt to follow up with Dr Leach this week. Disposition - Disposition OB Disposition: Discharge to home Discharge Date: 10/03/18 Discharge Time: 04:30 I agree with the RN Medical Screening Exam: Yes Risk & Benefit of care provided described in d/c instruction: Yes Diagnosis: URINARY TRACT INFECTION, SITE NOT SPECIFIED
== END 2018-10-03 04:30 | disposition home or self-care (01) ==
LOC: FBPOP 02:13
PROVIDERS: ATTEND Obstetrics & Gynecology
DX: O99.89 Other specified diseases and conditions complicating pregnancy, childbirth and the puerperium (principal); Z3A.29 29 weeks gestation of pregnancy
CPT/HCPCS: 59025; 82731; 81001; 87086; G0463; 99213

== ENCOUNTER 2018-10-14 16:02 | Outpatient (CLI) | payer OTHER ==
[2018-10-14 16:46] LABS: Appearance,Urine Clear (Clear); Bacteria,Urine Rare /hpf; Bilirubin,Urine Negative (Negative); Blood,Urine Negative (Negative); Color,Urine Yellow; Glucose,Urine (UA) Negative (Negative); Ketones,Urine Trace (Negative); Leukocyte Esterase,Urine Moderate (Negative); Mucus,Urine Moderate /hpf; Nitrite,Urine Negative (Negative); Protein,Urine 1+ (Negative); RBC,Urine 2 /hpf (0-5); Squamous Epithelial Cell,Urine 1 /hpf (0-4); WBC,Urine 4 /hpf (0-5)
[2018-10-14 16:57] VITALS: BP 117/58; PULSE 94; RESP 18; TEMP 97.6
[2018-10-14 17:10] LABS: Basophils % (A) 0 %; Eosinophils # (A) 0.2 k/uL (0-0.7); Eosinophils % (A) 3 %; HCT 38.7 % (34.0-46.0); HGB 13.4 gm/dL (11.4-16.0); Lymphocytes # (A) 2.5 k/uL (1.0-4.8); Lymphocytes % (A) 30 %; MCH 29.7 pg (25.0-35.0); MCHC 34.7 g/dL (31.0-37.0); MCV 85.5 fL (80.0-100.0); Mean Platelet Volume 7.7; Monocytes # (A) 0.4 k/uL (0-1.0); Monocytes % (A) 4 %; Neutrophils # (A) 5.1 k/uL (1.3-7.7); Neutrophils % (A) 62 %; Platelet Count 242 k/uL (150-450); RBC 4.53 m/uL (3.80-5.40); RDW 13.8 % (11.5-15.5); WBC 8.2 k/uL (3.8-10.6)
[2018-10-14 17:19] LABS: ALT 13 U/L (9-52); AST 18 U/L (14-36); African American GFR (CKD) >90 (>60 ml/min/1.73 sqM); Blood Urea Nitrogen 8 mg/dL (7-17); LDH 421 U/L (313-618); Non-African American GFR(CKD) >90 (>60 ml/min/1.73 sqM); Uric Acid 5.1 mg/dL (3.7-7.4)
--- NOTE | 2018-10-24 11:03 | P.MSEPDOC ---
Presenting Problems - Arrival Data Date of Arrival on Unit: 10/14/18 Time of Arrival on Unit: 16:15 Mode of Transport: Ambulatory - Complaint OB-Reason for Admission/Chief Complaint: Other Comment: PIH work up, pt sent from office with elevated blood pressures, has been having headaches, and seeing flashes when changing positions. Has a history of pre-eclampsia with previous . This is a twin . Medical History - Information : 3 Para: 2 Term: 2 : 0 Abortions: Spontaneous or Elective: 0 Number of Living Children: 2 - Gestational Age Gestational Age by OSCAR (wks/days): 31 Weeks and 2 Days - History Complications: Multiple Review of Systems - Review of Systems Constitutional: Recent weight loss Breast: No problems ENT: No problems Cardiovascular: No problems Respiratory: VIOLETTE Gastrointestinal: Constipation Genitourinary: No problems Musculoskeletal: No problems Neurological: Dizziness Skin: Itching Comment: has gained 1lb a day this week. Pt has a hx of asthma that is worse in the summer, uses a rescue inhaler as needed. Vital Signs - Temperature Temperature: 97.6 F Temperature Source: Temporal Artery Scan - Pulse Pulse Oximetery Pulse Rate: 94 Pulse Assessment Method: Automatic Cuff - Respirations Respiratory Rate: 18 Oxygen Delivery Method: Room Air O2 Sat by Pulse Oximetry: 97 - Blood Pressure Right Arm Blood Pressure: 117/58 Blood Pressure Mean: 77 Blood Pressure Source: Automatic Cuff Medical Screen Scoring (Pre) - Cervical Exam Dilation: Exam Deferred Effacement: Exam Deferred - Uterine Contractions Frequency: N/A - Maternal Vital Signs Maternal Temperature: N/A Maternal Blood Pressure: N/A Signs of Preeclampsia: N/A Maternal Respirations: N/A - Maternal Trauma Maternal Trauma: N/A - Assessment - Baby A Baseline FHR: 125 Heart Rate - NICHD Category: Category I (Normal) = 0 Position: N/A Station: N/A - Assessment - Baby B Baseline FHR: 145 Heart Rate - NICHD Category: Category I (Normal) = 0 Position: N/A Station: N/A - Total Score - Baby A Total Score - Baby A: 0 - Total Score - Baby B Total Score - Baby B: 0 - Total Score - Baby C Total Score - Baby C: 0 - Level of Risk - Baby A Level of Risk - Baby A: Low (0-5) - Level of Risk - Baby B Level of Risk - Baby B: Low (0-5) - Level of Risk - Baby C Level of Risk - Baby C: Low (0-5) - Pain Assessment Pain Location and Character: Lower, Back Pain Scale Used: Numeric (1 - 10) Pain Intensity: 4 Pain Description: *Acute Pain Radiation Location: none Pain Frequency: Constant Pain Duration: 4 Pain Duration Units: weeks Pain Behavior: None Exhibited Pain Aggravating Factors: Activity Physician Notification (Pre) - Physician Notified Physician Notified Date: 10/14/18 Physician Notified Time: 16:56 - Notification Comment Comment: Dr Leach seen patient in the office and was sent over to labor and delivery for evaluation. [id number] Dr Leach called labs and b/p's WNL. ok to discharge home Disposition - Disposition OB Disposition: Discharge to home Discharge Date: 10/14/18 Discharge Time: 17:32 I agree with the RN Medical Screening Exam: Yes Risk & Benefit of care provided described in d/c instruction: Yes Diagnosis: GESTATIONAL HTN W/O SIGNIFICANT PROTEINURIA, THIRD TRIMESTER
== END 2018-10-14 17:32 | disposition home or self-care (01) ==
LOC: FBPOP 16:02
PROVIDERS: ATTEND Obstetrics & Gynecology
DX: O13.3 Gestational [pregnancy-induced] hypertension without significant proteinuria, third trimester (principal); Z3A.31 31 weeks gestation of pregnancy
CPT/HCPCS: 82570; 84156; 82565; 83615; 84450; 84460; 84520; 84550; 85025; 81001; 87086; G0463; 99215

== ENCOUNTER 2018-10-21 14:09 | Outpatient (CLI) | payer OTHER ==
[2018-10-21 15:08] LABS: Appearance,Urine Cloudy (Clear); Bacteria,Urine Occasional /hpf; Bilirubin,Urine Negative (Negative); Blood,Urine Negative (Negative); Color,Urine Yellow; Glucose,Urine (UA) Negative (Negative); Ketones,Urine Negative (Negative); Leukocyte Esterase,Urine Large (Negative); Mucus,Urine Rare /hpf; Nitrite,Urine Negative (Negative); Protein,Urine Negative (Negative); RBC,Urine 13 /hpf (0-5); Specific Gravity,Urine 1.011 (1.001-1.035); Squamous Epithelial Cell,Urine 2 /hpf (0-4); Urobilinogen,Urine <2.0 mg/dL (<2.0); WBC,Urine 55 /hpf (0-5)
[2018-10-21 15:46] LABS: ALT 13 U/L (9-52); AST 17 U/L (14-36); African American GFR (CKD) >90 (>60 ml/min/1.73 sqM); Basophils % (A) 0 %; Blood Urea Nitrogen 8 mg/dL (7-17); Eosinophils # (A) 0.1 k/uL (0-0.7); Eosinophils % (A) 2 %; HCT 39.6 % (34.0-46.0); HGB 13.4 gm/dL (11.4-16.0); LDH 441 U/L (313-618); Lymphocytes # (A) 2.3 k/uL (1.0-4.8); Lymphocytes % (A) 34 %; MCH 29.5 pg (25.0-35.0); MCHC 33.8 g/dL (31.0-37.0); MCV 87.4 fL (80.0-100.0); Mean Platelet Volume 8.3; Monocytes # (A) 0.4 k/uL (0-1.0); Monocytes % (A) 6 %; Neutrophils % (A) 57 %; Non-African American GFR(CKD) >90 (>60 ml/min/1.73 sqM); Platelet Count 237 k/uL (150-450); RBC 4.54 m/uL (3.80-5.40); Uric Acid 5.5 mg/dL (3.7-7.4)
[2018-10-21 16:08] VITALS: BP 119/74; PULSE 96; RESP 16; TEMP 96.3
--- NOTE | 2018-10-24 11:10 | P.MSEPDOC ---
Presenting Problems - Arrival Data Date of Arrival on Unit: 10/21/18 Time of Arrival on Unit: 14:09 Mode of Transport: Ambulatory - Complaint OB-Reason for Admission/Chief Complaint: NST, Other Comment: PIH labwork Medical History - Information : 3 Para: 2 Term: 2 : 0 Abortions: Spontaneous or Elective: 0 Number of Living Children: 2 - Gestational Age Gestational Age by OSCAR (wks/days): 32 Weeks and 2 Days Review of Systems - Review of Systems Constitutional: No problems Breast: No problems ENT: No problems Cardiovascular: No problems Respiratory: No problems Gastrointestinal: No problems Genitourinary: No problems Musculoskeletal: No problems Neurological: No problems Skin: No problems Vital Signs - Temperature Temperature: 96.3 F Temperature Source: Temporal Artery Scan - Pulse Right Brachial Pulse Rate: 96 Pulse Assessment Method: Automatic Cuff - Respirations Respiratory Rate: 16 Oxygen Delivery Method: Room Air O2 Sat by Pulse Oximetry: 98 - Blood Pressure Right Arm Blood Pressure: 119/74 Blood Pressure Mean: 89 Blood Pressure Source: Automatic Cuff Medical Screen Scoring (Pre) - Cervical Exam Dilation: Exam Deferred Effacement: Exam Deferred Membranes: Intact - Uterine Contractions Frequency: N/A Duration: N/A Intensity: N/A - Maternal Vital Signs Maternal Temperature: N/A Maternal Blood Pressure: N/A Signs of Preeclampsia: N/A Maternal Respirations: N/A - Assessment - Baby A Baseline FHR: 145 Heart Rate - NICHD Category: Category I (Normal) = 0 NST: Reactive Position: N/A Station: N/A - Assessment - Baby B Baseline FHR: 165 Heart Rate - NICHD Category: Category I (Normal) = 0 NST: Reactive Position: N/A Station: N/A - Total Score - Baby A Total Score - Baby A: 0 - Total Score - Baby B Total Score - Baby B: 0 - Total Score - Baby C Total Score - Baby C: 0 - Level of Risk - Baby A Level of Risk - Baby A: Low (0-5) - Level of Risk - Baby B Level of Risk - Baby B: Low (0-5) - Level of Risk - Baby C Level of Risk - Baby C: Low (0-5) Physician Notification (Pre) - Physician Notified Physician Notified Date: 10/21/18 Physician Notified Time: 15:55 Physician/Practitioner Notifed:: Dr. Leach Spoke With: Dr. Leach New Order Received: Yes - Notification Comment Comment: Dr. Leach given report on pt in tr. Pt vs WNL. Reactive NST for Twin A and. Twin B. Lab results read back. Orders recieved to d/c pt to home. Disposition - Disposition OB Disposition: Discharge to home Discharge Date: 10/21/18 Discharge Time: 16:00 I agree with the RN Medical Screening Exam: Yes Risk & Benefit of care provided described in d/c instruction: Yes Diagnosis: GESTATIONAL HTN W/O SIGNIFICANT PROTEINURIA, THIRD TRIMESTER
== END 2018-10-21 16:00 | disposition home or self-care (01) ==
LOC: FBPOP 14:09
PROVIDERS: ATTEND Obstetrics & Gynecology
DX: O13.3 Gestational [pregnancy-induced] hypertension without significant proteinuria, third trimester (principal); Z3A.32 32 weeks gestation of pregnancy
CPT/HCPCS: 59025; 82565; 83615; 84450; 84460; 84520; 84550; 85025; 81001; 87086; G0463; 99213

== ENCOUNTER 2018-10-30 11:36 | Outpatient (CLI) | payer OTHER ==
[2018-10-30 12:22] VITALS: BP 125/80; PULSE 95; RESP 16; TEMP 98.5
--- NOTE | 2018-11-07 11:35 | P.MSEPDOC ---
Presenting Problems - Arrival Data Date of Arrival on Unit: 10/30/18 Time of Arrival on Unit: 12:17 Mode of Transport: Ambulatory - Complaint OB-Reason for Admission/Chief Complaint: NST Medical History - Information : 3 Para: 2 Term: 2 : 0 Abortions: Spontaneous or Elective: 0 Number of Living Children: 2 - Gestational Age Gestational Age by OSCAR (wks/days): 33 Weeks and 4 Days - History Comment: twin Review of Systems - Review of Systems Constitutional: No problems Breast: No problems ENT: No problems Cardiovascular: No problems Respiratory: No problems Gastrointestinal: No problems Genitourinary: No problems Musculoskeletal: No problems Neurological: No problems Skin: No problems Vital Signs - Temperature Temperature: 98.5 F Temperature Source: Oral - Pulse Left Lateral Pulse Rate: 95 Pulse Assessment Method: Automatic Cuff - Respirations Respiratory Rate: 16 Oxygen Delivery Method: Room Air - Blood Pressure Sitting Blood Pressure: 125/80 Blood Pressure Mean: 95 Blood Pressure Source: Automatic Cuff Medical Screen Scoring (Pre) - Cervical Exam Dilation: Exam Deferred - Uterine Contractions Frequency: N/A - Maternal Vital Signs Maternal Temperature: N/A Maternal Respirations: N/A - Maternal Trauma Maternal Trauma: N/A - Assessment - Baby A Baseline FHR: 135 Heart Rate - NICHD Category: Category I (Normal) = 0 - Assessment - Baby B Baseline FHR: 140 Heart Rate - NICHD Category: Category I (Normal) = 0 - Total Score - Baby A Total Score - Baby A: 0 - Total Score - Baby B Total Score - Baby B: 0 - Total Score - Baby C Total Score - Baby C: 0 - Level of Risk - Baby A Level of Risk - Baby A: Low (0-5) - Level of Risk - Baby B Level of Risk - Baby B: Low (0-5) - Level of Risk - Baby C Level of Risk - Baby C: Low (0-5) Physician Notification (Pre) - Physician Notified Physician Notified Date: 10/30/18 Physician Notified Time: 12:21 Physician/Practitioner Notifed:: dr silva New Order Received: Yes Disposition - Disposition OB Disposition: Discharge to home Discharge Date: 10/30/18 Discharge Time: 12:55 I agree with the RN Medical Screening Exam: Yes Risk & Benefit of care provided described in d/c instruction: Yes Diagnosis: RELATED CONDITIONS, UNSPECIFIED, THIRD TRIMESTER (nst for twins)
== END 2018-10-30 12:55 | disposition home or self-care (01) ==
LOC: FBPOP 11:36
PROVIDERS: ATTEND Obstetrics & Gynecology
DX: O26.893 Other specified pregnancy related conditions, third trimester (principal); O30.003 Twin pregnancy, unspecified number of placenta and unspecified number of amniotic sacs, third trimester; Z3A.33 33 weeks gestation of pregnancy
CPT/HCPCS: 59025; G0463; 99213

== ENCOUNTER 2018-11-06 13:21 | Outpatient (CLI) | payer OTHER ==
[2018-11-06 16:30] VITALS: BP 131/67; PULSE 80; RESP 16; TEMP 96.8
--- NOTE | 2018-11-12 08:47 | P.MSEPDOC ---
Presenting Problems - Arrival Data Date of Arrival on Unit: 11/06/18 Time of Arrival on Unit: 13:21 Mode of Transport: Ambulatory - Complaint OB-Reason for Admission/Chief Complaint: NST Comment: Twins Medical History - Information : 3 Para: 2 Term: 2 : 0 Abortions: Spontaneous or Elective: 0 Number of Living Children: 2 - Gestational Age Gestational Age by OSCAR (wks/days): 34 Weeks and 4 Days - History Complications: Multiple Review of Systems - Review of Systems Constitutional: No problems Breast: No problems ENT: No problems Cardiovascular: No problems Respiratory: No problems Gastrointestinal: No problems Genitourinary: No problems Musculoskeletal: No problems Neurological: No problems Skin: No problems Vital Signs - Temperature Temperature: 96.8 F Temperature Source: Temporal Artery Scan - Pulse Right Brachial Pulse Rate: 80 Pulse Assessment Method: Automatic Cuff - Respirations Respiratory Rate: 16 Oxygen Delivery Method: Room Air O2 Sat by Pulse Oximetry: 97 - Blood Pressure Right Arm Sitting Blood Pressure: 131/67 Blood Pressure Mean: 88 Blood Pressure Source: Automatic Cuff Medical Screen Scoring (Pre) - Cervical Exam Dilation: Exam Deferred Effacement: Exam Deferred Membranes: Intact - Uterine Contractions Frequency: > 5 minutes apart = 1 Duration: > 40 seconds = 2 - Maternal Vital Signs Maternal Temperature: N/A Maternal Blood Pressure: N/A Signs of Preeclampsia: N/A Maternal Respirations: N/A - Assessment - Baby A Baseline FHR: 135 Heart Rate - NICHD Category: Category I (Normal) = 0 NST: Reactive - Assessment - Baby B Baseline FHR: 140 Heart Rate - NICHD Category: Category I (Normal) = 0 NST: Reactive - Total Score - Baby A Total Score - Baby A: 3 - Total Score - Baby B Total Score - Baby B: 3 - Total Score - Baby C Total Score - Baby C: 3 - Level of Risk - Baby A Level of Risk - Baby A: Low (0-5) - Level of Risk - Baby B Level of Risk - Baby B: Low (0-5) - Level of Risk - Baby C Level of Risk - Baby C: Low (0-5) Physician Notification (Pre) - Physician Notified Physician Notified Date: 11/06/18 Physician Notified Time: 14:05 Spoke With: Haylee Luis Order Received: Yes (discharge) Physician Notification (Post) - Notification Comment Comment: Twin NST both reactive Disposition - Disposition OB Disposition: Discharge to home, Written follow up instructions reviewed Discharge Date: 11/06/18 Discharge Time: 14:08 I agree with the RN Medical Screening Exam: Yes Risk & Benefit of care provided described in d/c instruction: Yes Diagnosis: TWIN , DICHORIONIC/DIAMNIOTIC, THIRD TRIMESTER
== END 2018-11-06 14:08 | disposition home or self-care (01) ==
LOC: FBPOP 13:21
PROVIDERS: ATTEND Obstetrics & Gynecology
DX: O30.043 Twin pregnancy, dichorionic/diamniotic, third trimester (principal); Z3A.34 34 weeks gestation of pregnancy
CPT/HCPCS: 59025

== ENCOUNTER 2018-11-10 22:00 | Outpatient (CLI) | payer OTHER ==
[2018-11-10 22:26] LABS: Appearance,Urine Clear (Clear); Bilirubin,Urine Negative (Negative); Blood,Urine Negative (Negative); Color,Urine Yellow; Glucose,Urine (UA) Negative (Negative); Ketones,Urine Negative (Negative); Leukocyte Esterase,Urine Large (Negative); Mucus,Urine Occasional /hpf; Nitrite,Urine Negative (Negative); Protein,Urine 1+ (Negative); RBC,Urine 22 /hpf (0-5); Specific Gravity,Urine 1.033 (1.001-1.035); Squamous Epithelial Cell,Urine 3 /hpf (0-4); WBC,Urine 13 /hpf (0-5)
[2018-11-10 23:54] LABS: Basophils % (A) 1 %; Eosinophils # (A) 0.3 k/uL (0-0.7); Eosinophils % (A) 4 %; HCT 38.1 % (34.0-46.0); HGB 12.9 gm/dL (11.4-16.0); Lymphocytes # (A) 2.5 k/uL (1.0-4.8); Lymphocytes % (A) 36 %; MCHC 33.9 g/dL (31.0-37.0); MCV 85.7 fL (80.0-100.0); Mean Platelet Volume 8.9; Monocytes # (A) 0.3 k/uL (0-1.0); Monocytes % (A) 4 %; Neutrophils # (A) 3.9 k/uL (1.3-7.7); Neutrophils % (A) 55 %; Platelet Count 216 k/uL (150-450); RBC 4.45 m/uL (3.80-5.40); RDW 15.3 % (11.5-15.5); WBC 7.1 k/uL (3.8-10.6)
[2018-11-11 00:03] LABS: ALT 20 U/L (9-52); AST 22 U/L (14-36); African American GFR (CKD) >90 (>60 ml/min/1.73 sqM); Blood Urea Nitrogen 12 mg/dL (7-17); LDH 507 U/L (313-618); Uric Acid 6.4 mg/dL (3.7-7.4)
[2018-11-11 00:10] VITALS: RESP 18
[2018-11-11 00:32] VITALS: BP 129/72; PULSE 81; TEMP 96.8
--- NOTE | 2018-11-12 08:49 | P.MSEPDOC ---
Presenting Problems - Arrival Data Date of Arrival on Unit: 11/11/18 Time of Arrival on Unit: 22:00 Mode of Transport: Wheelchair - Complaint OB-Reason for Admission/Chief Complaint: Possible Onset of Labor Comment: Pt complaining of contractions every 10-15 min and pressure with urination. Medical History - Information : 3 Para: 2 Term: 2 : 0 Abortions: Spontaneous or Elective: 0 Number of Living Children: 2 - Gestational Age Gestational Age by OSCAR (wks/days): 35 Weeks and 2 Days - History Complications: Other Comment: Pt has history of PIH, Labs drawn. Review of Systems - Review of Systems Constitutional: No problems Breast: No problems ENT: No problems Cardiovascular: No problems Respiratory: No problems Gastrointestinal: No problems Genitourinary: No problems Musculoskeletal: No problems Neurological: No problems Skin: No problems Vital Signs - Temperature Temperature: 96.8 F Temperature Source: Temporal Artery Scan - Pulse Pulse Oximetery Pulse Rate: 81 Pulse Assessment Method: Automatic Cuff - Respirations Respiratory Rate: 18 Oxygen Delivery Method: Room Air - Blood Pressure Right Arm Blood Pressure: 129/72 Blood Pressure Mean: 91 Blood Pressure Source: Automatic Cuff Medical Screen Scoring (Pre) - Cervical Exam Dilation: 1-3 cm = 1 Effacement: Exam Deferred Membranes: Intact - Uterine Contractions Frequency: N/A Duration: N/A Intensity: N/A - Maternal Vital Signs Maternal Temperature: N/A Maternal Blood Pressure: N/A Signs of Preeclampsia: N/A Maternal Respirations: N/A - Maternal Trauma Maternal Trauma: N/A - Assessment - Baby A Baseline FHR: 145 Heart Rate - NICHD Category: Category I (Normal) = 0 NST: Reactive Position: N/A Station: N/A - Assessment - Baby B Baseline FHR: 145 Heart Rate - NICHD Category: Category I (Normal) = 0 NST: Reactive Position: N/A Station: N/A - Total Score - Baby A Total Score - Baby A: 1 - Total Score - Baby B Total Score - Baby B: 1 - Total Score - Baby C Total Score - Baby C: 1 - Level of Risk - Baby A Level of Risk - Baby A: Low (0-5) - Level of Risk - Baby B Level of Risk - Baby B: Low (0-5) - Level of Risk - Baby C Level of Risk - Baby C: Low (0-5) Physician Notification (Pre) - Physician Notified Physician Notified Date: 11/11/18 Physician Notified Time: 23:25 Physician/Practitioner Notifed:: Dr. Leach Spoke With: Dr. Leach New Order Received: Yes (Repeat BP x2 and PIH labs) Medical Screen Scoring (Post) - Pain Assessment Pain Location and Character: Back Pain Scale Used: Numeric (1 - 10) Pain Intensity: 2 Pain Management Goal: 2 Pain Description: Aching, Dull Pain Radiation Location: 0 Pain Frequency: Intermittent Pain Duration Units: Days Pain Behavior: None Exhibited Pain Aggravating Factors: Activity Non-Pharmacological Interventions: Darkened Room Physician Notification (Post) - Physician Notified Physician Notified Date: 11/11/18 Physician Notified Time: 00:20 Physician/Practitioner Notified:: Dr Leach Spoke With: Dr. Leach New Order Received: Yes (Discharge home) - Notification Comment Comment: Notified of PIH labs and BP checks. Disposition - Disposition OB Disposition: Discharge to home, Written follow up instructions reviewed Discharge Date: 11/11/18 Discharge Time: 00:25 I agree with the RN Medical Screening Exam: Yes Risk & Benefit of care provided described in d/c instruction: Yes Diagnosis: FALSE LABOR BEFORE 37 COMPLETED WEEKS OF GEST, THIRD TRI (twins)
== END 2018-11-11 00:25 | disposition home or self-care (01) ==
LOC: FBPOP 22:00
PROVIDERS: ATTEND Obstetrics & Gynecology
DX: O47.03 False labor before 37 completed weeks of gestation, third trimester (principal); Z3A.35 35 weeks gestation of pregnancy
CPT/HCPCS: 59025; 84112; 82565; 83615; 84450; 84460; 84520; 84550; 85025; 81001; G0463; 99215

== ENCOUNTER 2018-11-13 15:05 | Outpatient (CLI) | payer OTHER ==
[2018-11-13 15:18] VITALS: PULSE 82; TEMP 97
[2018-11-13 15:56] VITALS: BP 131/71; RESP 18
--- NOTE | 2018-12-23 18:44 | P.MSEPDOC ---
Presenting Problems - Arrival Data Date of Arrival on Unit: 11/13/18 Time of Arrival on Unit: 15:16 Mode of Transport: Ambulatory Vital Signs - Temperature Temperature: 97.0 F Temperature Source: Temporal Artery Scan - Pulse Right Brachial Pulse Rate: 82 Pulse Assessment Method: Automatic Cuff - Respirations Respiratory Rate: 18 Oxygen Delivery Method: Room Air O2 Sat by Pulse Oximetry: 98 - Blood Pressure Right Arm Blood Pressure: 131/71 Blood Pressure Mean: 91 Blood Pressure Source: Automatic Cuff Physician Notification (Pre) - Physician Notified Spoke With: ricardo New Order Received: Yes - Notification Comment Comment: discharge home. to keep sched appts with him on fri next week and with [facility] on friday next week Disposition - Disposition Discharge Date: 11/13/18 Discharge Time: 15:45 I agree with the RN Medical Screening Exam: Yes Risk & Benefit of care provided described in d/c instruction: Yes Diagnosis: RELATED CONDITIONS, UNSPECIFIED, THIRD TRIMESTER
== END 2018-11-13 15:40 | disposition home or self-care (01) ==
LOC: FBPOP 15:05
PROVIDERS: ATTEND Obstetrics & Gynecology
DX: O30.003 Twin pregnancy, unspecified number of placenta and unspecified number of amniotic sacs, third trimester (principal); Z3A.35 35 weeks gestation of pregnancy
CPT/HCPCS: 59025; G0463; 99213

== ENCOUNTER → 2018-11-20 | Outpatient (CLI) | payer OTHER ==
--- NOTE | 2018-12-10 17:39 | P.MSEPDOC ---
I agree with the RN Medical Screening Exam: No Physician's MSE Comment: There is nothing documented in this document per nursing staff and therefore I cannot agree to it Risk & Benefit of care provided described in d/c instruction: No Diagnosis: RELATED CONDITIONS, UNSP, UNSPECIFIED TRIMESTER
== END | disposition home or self-care (01) ==
LOC: FBPOP 18:54
PROVIDERS: ATTEND Obstetrics & Gynecology
DX: Z53.9 Procedure and treatment not carried out, unspecified reason (principal)

== ENCOUNTER 2018-11-23 18:06 | Outpatient (CLI) | payer OTHER ==
--- NOTE | 2018-12-09 18:53 | P.MSEPDOC ---
Presenting Problems - Arrival Data Date of Arrival on Unit: 11/23/18 Time of Arrival on Unit: 18:06 Mode of Transport: Ambulatory Disposition - Disposition Discharge Date: 11/23/18 Discharge Time: 18:35 I agree with the RN Medical Screening Exam: No Risk & Benefit of care provided described in d/c instruction: No Diagnosis: None (Insufficient information provided to complete MSE.)
== END 2018-11-23 18:35 | disposition home or self-care (01) ==
LOC: FBPOP 18:06
PROVIDERS: ATTEND Obstetrics & Gynecology
DX: O30.003 Twin pregnancy, unspecified number of placenta and unspecified number of amniotic sacs, third trimester (principal); Z3A.37 37 weeks gestation of pregnancy
CPT/HCPCS: 59025

== ENCOUNTER 2018-11-25 09:51 | Inpatient (IN) | payer OTHER ==
[2018-11-24 13:37] VITALS: BMI 49.8
[2018-11-25] MEDS ORDERED: LACTATED RINGERS 1,000 ML IV ONE (10:00)
[2018-11-25] MEDS ORDERED: CITRIC ACID-SODIUM CITRATE 15 ML CUP PO ONE (10:00)
[2018-11-25] MEDS ORDERED: ceFAZolin 3 GM in SODIUM CHLORIDE 0.9% 100 ML IVPB ONE (10:00)
[2018-11-25 10:29] LABS: Basophils % (A) 1 %; Eosinophils # (A) 0.3 k/uL (0-0.7); Eosinophils % (A) 4 %; HCT 41.7 % (34.0-46.0); HGB 14.1 gm/dL (11.4-16.0); Lymphocytes # (A) 2.7 k/uL (1.0-4.8); Lymphocytes % (A) 35 %; MCHC 33.9 g/dL (31.0-37.0); MCV 85.4 fL (80.0-100.0); Mean Platelet Volume 9.5; Monocytes # (A) 0.4 k/uL (0-1.0); Monocytes % (A) 5 %; Neutrophils # (A) 4.3 k/uL (1.3-7.7); Neutrophils % (A) 55 %; Platelet Count 224 k/uL (150-450); RBC 4.88 m/uL (3.80-5.40); RDW 15.3 % (11.5-15.5); WBC 7.9 k/uL (3.8-10.6)
[2018-11-25] MEDS ORDERED: NALBUPHINE 10 MG/ML (1 ML AMP) ONE (11:52)
[2018-11-25] MEDS ORDERED: MORPHINE SULFATE (PF) 0.3 MG/0.3 ML SYR ONE (11:52)
[2018-11-25] MEDS ORDERED: LACTATED RINGERS 1,000 ML BAG IV ONE (11:52)
[2018-11-25] MEDS ORDERED: KETOROLAC 30 MG/ML 1 ML VIAL ONE (11:52)
[2018-11-25] MEDS ORDERED: OXYTOCIN 10 UNIT/ML 1 ML VIAL ONE (11:52)
[2018-11-25] MEDS ORDERED: KETOROLAC 30 MG/ML 1 ML VIAL IVP PRN (12:15)
[2018-11-25] MEDS ORDERED: MORPHINE SULFATE 2 MG/ML SYRINGE IVP PRN (12:15)
[2018-11-25] MEDS ORDERED: NALBUPHINE 10 MG/ML (1 ML AMP) IV PRN (12:15)
[2018-11-25] MEDS ORDERED: diphenhydrAMINE 50 MG/ML 1 ML VIAL IVP PRN ×2 (12:15→12:30)
[2018-11-25] MEDS ORDERED: NALOXONE 0.4 MG/ML 1 ML VIAL IV PRN ×2 (12:15→12:30)
[2018-11-25] MEDS ORDERED: ACETAMINOPHEN TAB 325 MG TAB PO PRN (12:30)
[2018-11-25] MEDS ORDERED: ONDANSETRON 4 MG/2 ML VIAL IVP PRN (12:30)
[2018-11-25] MEDS ORDERED: METOCLOPRAMIDE 5 MG/ML 2 ML VIAL IVP PRN (12:30)
[2018-11-25] MEDS ORDERED: diphenhydrAMINE 50 MG CAP PO PRN (12:30)
[2018-11-25] MEDS ORDERED: ZOLPIDEM 5 MG TAB PO PRN (12:30)
[2018-11-25] MEDS ORDERED: diphenhydrAMINE 25 MG CAP PO PRN (12:30)
--- NOTE | 2018-11-25 12:33 | P.HPOB ---
History of Present Illness H&P Date: 11/25/18 Chief Complaint: Intrauterine at term: Twins: Family planning Yanick is a 28-year-old with twins. Twin A is noted to be breech twin B is vertex. She is scheduled for a primary low transverse section with tubal occlusion with Filshie clips. Her course other than twin gestation has been unremarkable. She is feeling well at this time and realistically she has had no significant problems with the . She has been followed closely by myself and maternal medicine and ultrasounds have remained concordant. Assessment intrauterine at term: Twins: Family planning Past Medical History Past Medical History: Asthma, GERD/Reflux Additional Past Medical History / Comment(s): Hx of UTI's ,migraines, bronchitis, states hypertension with previous pregnancys., with twins. History of Any Multi-Drug Resistant Organisms: None Reported Past Surgical History: Cholecystectomy Additional Past Surgical History / Comment(s): . Past Anesthesia/Blood Transfusion Reactions: No Reported Reaction, Motion Sickness Additional Past Anesthesia/Blood Transfusion Reaction / Comment(s): Sleepy afterwards. Past Psychological History: Anxiety, Depression Smoking Status: Never smoker Past Alcohol Use History: Occasional Past Drug Use History: None Reported - Past Family History Brother(s) Additional Family Medical History / Comment(s): Cerebral Palsy Medications and Allergies Home Medications Medication Instructions Recorded Confirmed Type Albuterol Inhaler [Ventolin Hfa 1 - 2 puff INHALATION RT-Q6H PRN 11/24/18 11/24/18 History Inhaler] Allergies Allergy/AdvReac Type Severity Reaction Status Date / Time tramadol [From Ultram] Allergy Anaphylaxis Verified 11/25/18 10:00 Exam Osteopathic Statement: *. No significant issues noted on an osteopathic structural exam other than those noted in the History and Physical/Consult. Vital Signs Temp Pulse Resp BP Pulse Ox 11/25/18 10:04 97.8 F 80 16 146/82 11/25/18 10:00 97 F L 80 16 146/82 97 - OBG Physical Exam Breast: both: normal (no masses) Abdomen: bowel sounds normal, no diffuse tenderness, no bruit present, no guarding noted, no hepatomegaly, no splenomegaly, no mass Vulva: both: normal Vagina: normal moisture, no discharge Cervix: no lesion, no discharge Uterus: normal size, normal contour Adnexa: both: normal Anus/Rectum: normal perianal skin, no rectal mass, no hemorrhoids, heme negative Results Result Diagrams: 11/25/18 10:10
--- NOTE | 2018-11-25 12:37 | P.OP ---
Date of Procedure: 11/25/18 Preoperative Diagnosis: Intrauterine : Twins: Family planning Postoperative Diagnosis: Same Procedure(s) Performed: Primary low transverse section with bilateral tubal occlusion with Filshie clips Anesthesia: spinal Surgeon: Eric Leach Bulk Clerk #1: Mesfin Lyons Estimated Blood Loss (ml): 600 IV fluids (ml): 700 Urine output (ml): 100 Pathology: other (Placenta) Condition: stable Disposition: floor Operative Findings: Twin A baby girl Apgars of 9 and 9 and weight of 6 lbs. 15 oz.: Twin B baby girl Apgars of 8 and 9 and weight of 6 lbs. 5 oz. Nursery and route deliverer present a t delivery Description of Procedure: Patient was taken to the operating suite where a spinal anesthetic was found be adequate. She was prepped and draped in normal sterile fashion and placed in dorsal supine position with leftward tilt. Initially a Pfannenstiel skin incision was made and this incision was then carried through to underlying layer of the fascia with the second knife. Fascia was then nicked in the midline and this opening was extended laterally with Rojas scissors. Superior and inferior aspect of this incision were then grasped tented up and bluntly and sharply dissected off the rectus muscles. Rectus muscles were then divided the midline and sharp dissection the peritoneum was made. This opening was then extended superiorly and inferiorly with good visualization of both bowel bladder. Bladder blade was then placed and a bladder flap identified. It was entered with metastases scissors and this opening was extended across the face of the ut erus with Metzenbaum scissors. Bladder was then bluntly dissected out of the operative field. Knife was then used to incise uterus. Hemostat was then used to fully developed incision and it was then extended bluntly with clear fluid noted. Buttock was then noted and baby was delivered. It was brought down to level shoulders without difficulty shoulders were then swept and the head was easily delivered. Mouth nares were then bulb suctioned and nuchal cord 1 had been reduced. Once delivered umbilical cord was clamped cut usual fashion nursery personnel was present to assume care. Once this was accomplished with baby B or 2 and vertex present position artificial rupture membranes was performed and head was easily delivered. Mouth nares were then bulb suctioned and the anterior posterior shoulders were easily delivered followed by the remainder the baby. Umbilical cord was then clamped and cut in usual fashion an nursery personnel again was ready and assume care. Placenta was then delivered intact and Pitocin was added to the IV. Uterus was then exteriorized cleared of clots and debris and closed in 1 layer with 0 Vicryl suture. Excellent hemostasis was obtained Filshie clips were applied 2 cm from uterine cornu on both the right left side with no bleeding in the mesosalpinx. Blood and debris was then suctioned the posterior cul-de-sac and the uterus was reinserted into the abdomen and the peritoneal layer was closed with 0 Vicryl suture. Fascial layer was then closed with 0 Vicryl suture. One layer of 3-0 Vicryl was placed in the deep subcuticular tissues reapproximate the skin and close space. Skin was then closed with 3-0 Vicryl subcuticular. Sponge, lap, needle counts were all correct 2. Patient was then taken to the recovery room in stable and satisfactory condition.
[2018-11-25] MEDS: LACTATED RINGERS 1,000 ML IV SCH ×2 (12:59→15:05)
[2018-11-25] MEDS: diphenhydrAMINE 50 MG/ML 1 ML VIAL IVP PRN ×2 (15:31→22:02)
[2018-11-25] MEDS: KETOROLAC 30 MG/ML 1 ML VIAL IVP PRN (19:27)
[2018-11-25] MEDS: SENNOSIDES-DOCUSATE SODIUM 1 EACH TAB PO SCH (20:42)
[2018-11-26] MEDS: LACTATED RINGERS 1,000 ML IV SCH ×2 (01:17→01:18)
[2018-11-26] MEDS: KETOROLAC 30 MG/ML 1 ML VIAL IVP PRN ×2 (01:55→08:18)
--- NOTE | 2018-11-26 07:47 | P.PNOBGPC ---
Subjective - Subjective Principal diagnosis: Postop day 1 twin Interval history: Shawanda is doing very well this morning. She is involuting, voiding and tolerating her diet. She voices no complaints. Vital signs are stable and she is afebrile. Patient reports: Reports appetite normal, Reports voiding normally, Reports pain well controlled, Reports ambulating normally [place]: doing well Objective - Vital Signs Latest vital signs: Vital Signs Temp Pulse Resp BP Pulse Ox 11/26/18 04:00 98.2 F 86 18 106/63 97 11/26/18 01:00 18 11/26/18 00:00 98.2 F 70 18 118/72 100 11/25/18 23:00 17 11/25/18 21:00 18 11/25/18 20:00 98 F 64 18 118/61 100 11/25/18 18:35 17 11/25/18 16:43 18 11/25/18 16:00 97.8 F 72 18 120/79 100 11/25/18 15:17 18 11/25/18 14:33 60 16 138/81 11/25/18 14:03 70 16 138/79 11/25/18 13:37 57 L 16 139/81 95 11/25/18 13:33 73 16 161/78 11/25/18 13:18 68 16 157/87 11/25/18 13:03 68 16 148/75 95 11/25/18 12:47 77 16 126/63 96 11/25/18 12:37 77 16 126/63 96 11/25/18 12:33 97.4 F L 78 16 116/61 97 11/25/18 10:04 97.8 F 80 16 146/82 11/25/18 10:00 97 F L 80 16 146/82 97 Intake and Output 11/25/18 11/26/18 11/26/18 22:59 06:59 14:59 Intake Total 1400 Output Total 800 700 Balance 600 -700 Intake: Intake, IV Titration 1100 Amount Lactated Ringers 1,000 ml 1000 @ 125 mls/hr IV .[facility] Rx#:[id number] ceFAZolin 3 gm In Sodium 100 Chloride 0.9% 100 ml @ 200 mls/hr IVPB ONCE ONE Rx#:[id number] Oral 300 Output: Urine 800 700 Other: Voiding Method Indwelling Catheter - Exam Lungs: bilateral: normal Chest: Normal S1, Normal S2 Extremities: Present: normal Abdomen: Present: normal appearance, soft. Absent: distention, tenderness Incision: Present: normal, dry, intact Uterus: Present: normal, firm
--- NOTE | 2018-11-26 07:51 | P.PN ---
Progress Note - Text Progress Note Date: 11/26/18 patient was seen at 07:25 AM. Postoperative day 1 status post section under spinal anesthesia, and intrathecal morphine given for postoperative analgesia, patient doing well, there is no anesthesia related complications, Patient had no headache, vital signs stable , Assessment and plan= postop day 1 status post , doing well there is no anesthesia related complication.
[2018-11-26 07:55] LABS: Basophils % (A) 1 %; Eosinophils # (A) 0.2 k/uL (0-0.7); Eosinophils % (A) 3 %; HCT 38.2 % (34.0-46.0); HGB 13.2 gm/dL (11.4-16.0); Lymphocytes # (A) 2.3 k/uL (1.0-4.8); Lymphocytes % (A) 31 %; MCH 30.2 pg (25.0-35.0); MCHC 34.6 g/dL (31.0-37.0); MCV 87.1 fL (80.0-100.0); Mean Platelet Volume 9.5; Monocytes # (A) 0.4 k/uL (0-1.0); Monocytes % (A) 5 %; Neutrophils # (A) 4.5 k/uL (1.3-7.7); Neutrophils % (A) 60 %; Platelet Count 173 k/uL (150-450); RBC 4.39 m/uL (3.80-5.40); RDW 15.3 % (11.5-15.5); WBC 7.6 k/uL (3.8-10.6)
[2018-11-26] MEDS: SENNOSIDES-DOCUSATE SODIUM 1 EACH TAB PO SCH ×2 (08:17→20:11)
[2018-11-26] MEDS: HYDROcodone/APAP 7.5-325MG 1 EACH TAB PO PRN ×2 (16:39→23:53)
[2018-11-26] MEDS: IBUPROFEN 600 MG TAB PO PRN (18:40)
[2018-11-27] MEDS: IBUPROFEN 600 MG TAB PO PRN ×3 (05:02→20:11)
[2018-11-27] MEDS: SENNOSIDES-DOCUSATE SODIUM 1 EACH TAB PO SCH ×2 (08:03→20:12)
[2018-11-27] MEDS: HYDROcodone/APAP 7.5-325MG 1 EACH TAB PO PRN ×3 (08:03→22:11)
--- NOTE | 2018-11-27 08:24 | P.PNOBGPC ---
Subjective - Subjective Principal diagnosis: Postop day 2 Interval history: Jasmin is doing very well. She's ablating, voiding and tolerating her diet. She voices no complaint. Vital signs are stable and afebrile. Plan continue current care with discharged home tomorrow. Patient reports: Reports appetite normal, Reports voiding normally, Reports pain well controlled, Reports ambulating normally [place]: doing well (Twins) Objective - Vital Signs Latest vital signs: Vital Signs Temp Pulse Resp BP Pulse Ox 11/27/18 00:00 98.2 F 70 16 137/79 98 11/26/18 16:00 98.4 F 83 16 132/86 11/26/18 13:00 16 99 11/26/18 09:00 16 - Exam Lungs: bilateral: normal Chest: Normal S1, Normal S2 Extremities: Present: normal Abdomen: Present: normal appearance, soft. Absent: distention, tenderness Incision: Present: normal, dry, intact Uterus: Present: normal, firm
[2018-11-27 16:53] VITALS: RESP 18
[2018-11-28] MEDS: IBUPROFEN 600 MG TAB PO PRN ×2 (05:08→11:32)
--- NOTE | 2018-11-28 06:53 | P.PNOBGPC ---
Subjective - Subjective Patient reports: Reports appetite normal, Reports voiding normally, Reports pain well controlled, Reports ambulating normally : doing well Objective - Vital Signs Latest vital signs: Vital Signs Temp Pulse Resp BP Pulse Ox 11/28/18 00:00 98.1 F 75 18 130/72 11/27/18 16:00 99 F 61 18 132/77 11/27/18 08:00 97.5 F L 56 L 16 142/82 97 Intake and Output 11/27/18 11/27/18 11/28/18 14:59 22:59 06:59 Other: Voiding Method Indwelling Catheter - Exam Lungs: bilateral: normal Chest: Normal S1, Normal S2 Extremities: Present: normal Abdomen: Present: normal appearance, soft. Absent: distention, tenderness Incision: Present: normal, dry, intact Uterus: Present: normal, firm Assessment and Plan Assessment: Postoperative day #3. Patient is resting without new complaints. Vital signs are stable she is afebrile. Her incision is intact and dry. Patient desires to go home today. Plan is to continue routine postoperative care and discharge home later today. (1) delivery delivered Current Visit: Yes Status: Acute Code(s): O82 - ENCOUNTER FOR DELIVERY WITHOUT INDICATION SNOMED Code(s): 801755379
--- NOTE | 2018-11-28 06:56 | P.DS ---
Providers Date of admission: 11/25/18 09:51 Expected date of discharge: 11/28/18 Attending physician: Eric Leach Primary care physician: Stated None - Discharge Diagnosis(es) (1) delivery delivered Current Visit: Yes Status: Acute Hospital Course: Please see dictated H&P for intimate details of this patient's admission. Brief summary this is a pleasant 28-year-old 3 para 2 female 37 weeks gestation admitted to labor and delivery for primary section and permanent sterilization. Patient undergoes above-named surgeries for twin female infants. Please see dictated operative note. Postoperative and 3 patient's felt be stable for discharge home follow up with Dr. Leach 1 week. Procedures: Primary low transverse section and bilateral partial salpingectomy Patient Condition at Discharge: Good Plan - Discharge Summary Discharge Rx Participant: No New Discharge Prescriptions: New Ibuprofen [Motrin] 600 mg PO Q6HR PRN #30 tab PRN Reason: Pain HYDROcodone/APAP 5-325MG [[place] 5-325] 1 tab PO Q4HR PRN #30 tab PRN Reason: Pain No Action Albuterol Inhaler [Ventolin Hfa Inhaler] 1 - 2 puff INHALATION RT-Q6H PRN PRN Reason: Shortness Of Breath Discharge Medication List Albuterol Inhaler [Ventolin Hfa Inhaler] 1 - 2 puff INHALATION RT-Q6H PRN 11/24/18 [History] HYDROcodone/APAP 5-325MG [[place] 5-325] 1 tab PO Q4HR PRN #30 tab 11/27/18 [Rx] Ibuprofen [Motrin] 600 mg PO Q6HR PRN #30 tab 11/27/18 [Rx] Follow up Appointment(s)/Referral(s): Eric Leach DO [Doctor of Osteopathic Medicine] - 1 Week Activity/Diet/Wound Care/Special Instructions: No heavy lifting, limit stairs and driving, and pelvic rest. If any high temperatures, heavy bleeding, or severe pain call my office Discharge Disposition: HOME SELF-CARE
[2018-11-28] MEDS: SENNOSIDES-DOCUSATE SODIUM 1 EACH TAB PO SCH (07:55)
[2018-11-28] MEDS: HYDROcodone/APAP 7.5-325MG 1 EACH TAB PO PRN ×2 (07:55→12:45)
[2018-11-28 08:21] VITALS: BP 140/70; PULSE 55; TEMP 97.9
== END 2018-11-28 13:05 | disposition home or self-care (01) | DRG 785 ==
LOC: 4FBP 09:51
PROVIDERS: ADMIT Obstetrics & Gynecology; ATTEND Obstetrics & Gynecology
PROC: 0UB70ZZ Excision of Bilateral Fallopian Tubes, Open Approach (ICD-10-PCS; 2018-11-25)
PROC: 10D00Z1 Extraction of Products of Conception, Low, Open Approach (ICD-10-PCS; principal; 2018-11-25 12:00)
DX: O30.003 Twin pregnancy, unspecified number of placenta and unspecified number of amniotic sacs, third trimester (principal); O69.81X1 Labor and delivery complicated by cord around neck, without compression, fetus 1; Z3A.37 37 weeks gestation of pregnancy; Z37.2 Twins, both liveborn; O32.1XX1 Maternal care for breech presentation, fetus 1; O99.344 Other mental disorders complicating childbirth; F32.9 Major depressive disorder, single episode, unspecified; F41.9 Anxiety disorder, unspecified; J45.909 Unspecified asthma, uncomplicated; K21.9 Gastro-esophageal reflux disease without esophagitis; O99.52 Diseases of the respiratory system complicating childbirth; O99.62 Diseases of the digestive system complicating childbirth; Z87.440 Personal history of urinary (tract) infections; Z30.2 Encounter for sterilization
CPT/HCPCS: 85025; 86850; 86900; 86901; 88307